=== PATIENT | male | born 1950 | race Caucasian/White ===

== ENCOUNTER 2020-01-28 11:13 | Outpatient (CLI) | payer MEDICARE, SELFPAY ==
[2020-01-28 12:01] LABS: Creatinine Urine 102.6 mg/dL; Total Protein Urine Random 183 mg/dL
[2020-01-28 12:05] LABS: Alanine Aminotransferase 42 U/L (4-50); Albumin Level 3.7 g/dL (3.5-5.1); Albumin Level 3.8 g/dL (3.5-5.1); Alkaline Phosphatase 88 U/L (38-126); Anion Gap 7 mmol/L (8-16); Aspartate Amino Transferase 35 U/L (17-59); Bilirubin,Total 0.5 mg/dL (0.2-1.3); Blood Urea Nitrogen 26 mg/dL (9-20); Blood Urea Nitrogen 27 mg/dL (9-20); Calcium 9.1 mg/dL (8.4-10.2); Carbon Dioxide 24 mmol/L (22-30); Chloride 105 mmol/L (98-107); Chloride 106 mmol/L (98-107); Cholesterol 198 mg/dL (0-200); Estimated Glomerular Filt Rate 40; Glucose 94 mg/dL (75-110); Glucose 95 mg/dL (75-110); HDL Direct 39 mg/dL; Phosphorus 3.5 mg/dL (2.5-4.5); Potassium 4.5 mmol/L (3.4-5.0); Potassium 4.6 mmol/L (3.4-5.0); Sodium 136 mmol/L (137-145); Sodium 137 mmol/L (137-145); Triglycerides 66 mg/dL (<150); Uric Acid 9.2 mg/dL (3.5-8.5)
[2020-01-28 12:16] LABS: LDL Cholesterol Direct 123 mg/dL; Parathyroid Intact 118.6 pg/mL (7.5-53.5)
[2020-01-28 12:35] LABS: Prostate Specific Antigen 1.2 ng/mL (< OR = 4.0)
[2020-01-28 12:44] LABS: Vitamin D 25 Hydroxy 55.2 ng/mL
== END 2020-01-28 11:14 | disposition home or self-care (01) ==
PROVIDERS: PCP Internal Medicine; Visit Provider Internal Medicine
DX: M10.9 Gout, unspecified (principal); N18.3 Chronic kidney disease, stage 3 (moderate); R80.8 Other proteinuria; I12.9 Hypertensive chronic kidney disease with stage 1 through stage 4 chronic kidney disease, or unspecified chronic kidney disease; Z79.899 Other long term (current) drug therapy; E78.5 Hyperlipidemia, unspecified; Z12.5 Encounter for screening for malignant neoplasm of prostate
CPT/HCPCS: 36415; 80053; 80061; 80069; 82306; 82570; 83970; 84100; 84153; 84156; 84550; G0103

== ENCOUNTER 2020-05-31 09:20 | Outpatient (CLI) | payer MEDICARE, SELFPAY ==
[2020-05-31 09:59] LABS: Alanine Aminotransferase 41 U/L (4-50); Alkaline Phosphatase 67 U/L (38-126); Anion Gap 4 mmol/L (8-16); Aspartate Amino Transferase 39 U/L (17-59); Bilirubin,Total 0.6 mg/dL (0.2-1.3); Blood Urea Nitrogen 29 mg/dL (9-20); Calcium 9.6 mg/dL (8.4-10.2); Carbon Dioxide 30 mmol/L (22-30); Chloride 108 mmol/L (98-107); Cholesterol 254 mg/dL (0-200); Estimated Glomerular Filt Rate 43; Glucose 106 mg/dL (75-110); HDL Direct 67 mg/dL; Sodium 142 mmol/L (137-145); Triglycerides 120 mg/dL (<150); Uric Acid 9.3 mg/dL (3.5-8.5)
[2020-05-31 10:10] LABS: LDL Cholesterol Direct 150 mg/dL
[2020-05-31 10:43] LABS: Vitamin D 25 Hydroxy 34.9 ng/mL
== END 2020-05-31 09:21 | disposition home or self-care (01) ==
PROVIDERS: PCP Internal Medicine; Visit Provider Nurse Practitioner
DX: M10.9 Gout, unspecified (principal); E78.5 Hyperlipidemia, unspecified; E55.9 Vitamin D deficiency, unspecified
CPT/HCPCS: 36415; 80053; 80061; 82306; 84550

== ENCOUNTER → 2020-06-18 01:10 | Outpatient (CLI) | payer MEDICARE, SELFPAY ==
[2020-06-18 20:38] LABS: SARS-CoV-2 RNA PCR Negative
== END ==
PROVIDERS: PCP Internal Medicine; Visit Provider Internal Medicine Gastroenterology
DX: Z01.812 Encounter for preprocedural laboratory examination (principal); Z20.822 Contact with and (suspected) exposure to COVID-19
CPT/HCPCS: C9803; U0003; U0005

== ENCOUNTER 2020-06-21 01:03 | Day surgery (SDC) | payer MEDICARE, SELFPAY ==
[2020-06-03 12:29] VITALS: BMI 27.3
[2020-06-21 08:30] VITALS: BP 139/65; PULSE 75; RESP 18; TEMP 36.2; O2SAT 98
[2020-06-21] MEDS: LACTATED RINGERS 1,000 ML 150 ML IV CONT (08:51)
--- NOTE | 2020-06-21 09:07 | WPDANESEPPF ---
Anes - Initial Pre Proc Eval Procedure: Operation Date: 06/21/20 09:15 Proposed Procedures p Screening Colonoscopy - Jose Guadalupe Villafuerte MD Date/Time: 06/21/20 09:07 Surgeon: Jose Guadalupe Villafuerte MD Pre Op Diagnosis: Neoplasm Screening Patient Data Age: 70 Gender: M Height: 5 ft 10 in Weight: 87.2 kg Last Vital Signs Temp 36.2 C L 06/21/20 08:30 Pulse 75 06/21/20 08:30 Resp 18 06/21/20 08:30 BP 139/65 06/21/20 08:30 Pulse Ox 98 06/21/20 08:30 Allergies Allergy/AdvReac Type Severity Reaction Status Date / Time No Known Allergies Allergy Verified 06/21/20 08:19 Home Medications Medication Instructions Recorded Confirmed Type aspirin 81 mg tablet,delayed 81 mg PO DAILY 05/20/19 06/21/20 History release diltiazem HCl 180 mg capsule,24 180 mg PO DAILY 05/20/19 06/21/20 History hr,extended release ibuprofen 200 mg tablet 200 mg PO Q6H PRN 05/20/19 06/21/20 History omega-3 fatty acids 1,000 mg 1,000 mg PO DAILY 05/20/19 06/21/20 History capsule colchicine 0.6 mg tablet 0.6 mg PO BID PRN #30 tablet 02/29/20 06/21/20 Rx B-complex with vitamin C 1 tablet PO DAILY 05/30/20 06/21/20 History cholecalciferol (vitamin D3) 50 100 mcg PO DAILY tablet 05/30/20 06/21/20 History mcg (2,000 unit) tablet allopurinol 100 mg tablet 100 mg PO DAILY #90 tablet 05/31/20 06/21/20 Rx atorvastatin 20 mg tablet 20 mg PO DAILY #90 tablet 05/31/20 06/21/20 Rx Patient hx anesthesia problems: none Family hx anesthesia problems: none PMFSH Past Medical History Medical History Screening for colon cancer Screening for prostate cancer Family History Family History Mother Family history of Alzheimer's disease Father Family history of pancreatic cancer Social History Social History Smoking packs per day: 1.5 Smoking cigarettes per day: 30.0 Years smoked: 40 Smoking pack-years: 60.00 Smoking status: Former smoker Tobacco type: cigarettes Smoking end date: 05/13/10 Alcohol intake: current Drinks per week: 60 Alcohol use details: 6-8 per day Substance use: current Substance use type: marijuana Other substance usage details: occasionally Living arrangements: with family Gender identity (if verbalized by the patient): Male Spiritual care concerns: No Anes - Eval Final PreProcedure Day of Procedure 06/21/20 09:07 Patient weight: overweight Heart: regular rate and rhythm Lungs: clear to auscultation Airway: Mallampati scale class II Neurological: alert and oriented Last oral intake: >/= 8 hours ASA classification: III Emergent: no Anesthetic plan: proceed Anesthesia type and monitoring: general GIVS and standard monitoring Informed Consent: The patient's anesthetic plan and its attendant risks and benefits were discussed with the patient/family/POA. Questions were solicited and answers provided to the satisfaction of the patient/family/POA.
--- NOTE | 2020-06-21 09:37 | PM.HPGS ---
History of Present Illness History of Present Illness Consent: Risks, benefits, and alternatives have been discussed and questions answered. Patient agrees to proceed with procedure. Chief complaint: Neoplasm Screening Narrative: Caleb Martines is a 70 year old male here for first screening colonoscopy, denies lower gi symptmos Review of Systems Constitutional: Constitutional: Denies headache(s) and Denies weakness Eyes: Eyes: Denies blurry vision ENT: Reports Normal hearing present, Denies headache(s) and Denies neck pain Cardiovascular: Cardiovascular: Denies chest pain and Denies dyspnea Respiratory: Respiratory: Denies dyspnea Gastrointestinal: Gastrointestinal: Reports no additional gastrointestinal complaints Genitourinary: Genitourinary: Denies dysuria Musculoskeletal: Musculoskeletal: Denies neck pain Integumentary/Breasts: Skin/Breast: Denies dry skin Neurologic: Reports Normal hearing present, Denies headache(s) and Denies weakness Psychiatric: Psychiatric: Denies anxiety Endocrine: Endocrine: Denies change in body appearance Hematologic/Lymphatic: Hematologic/Lymphatic: Denies easy bleeding Allergic/Immunologic: Allergic/Immunologic: Denies urticaria PMFSH Past Medical History Medical History Screening for colon cancer Screening for prostate cancer Family History Family History Mother Family history of Alzheimer's disease Father Family history of pancreatic cancer Social History Social History Smoking packs per day: 1.5 Smoking cigarettes per day: 30.0 Years smoked: 40 Smoking pack-years: 60.00 Smoking status: Former smoker Tobacco type: cigarettes Smoking end date: 05/13/10 Alcohol intake: current Drinks per week: 60 Alcohol use details: 6-8 per day Substance use: current Substance use type: marijuana Other substance usage details: occasionally Living arrangements: with family Gender identity (if verbalized by the patient): Male Spiritual care concerns: No Meds Home Medications and Allergies Home Medications Medication Instructions Recorded Confirmed Type aspirin 81 mg tablet,delayed 81 mg PO DAILY 05/20/19 06/21/20 History release diltiazem HCl 180 mg capsule,24 180 mg PO DAILY 05/20/19 06/21/20 History hr,extended release ibuprofen 200 mg tablet 200 mg PO Q6H PRN 05/20/19 06/21/20 History omega-3 fatty acids 1,000 mg 1,000 mg PO DAILY 05/20/19 06/21/20 History capsule colchicine 0.6 mg tablet 0.6 mg PO BID PRN #30 tablet 02/29/20 06/21/20 Rx B-complex with vitamin C 1 tablet PO DAILY 05/30/20 06/21/20 History cholecalciferol (vitamin D3) 50 100 mcg PO DAILY tablet 05/30/20 06/21/20 History mcg (2,000 unit) tablet allopurinol 100 mg tablet 100 mg PO DAILY #90 tablet 05/31/20 06/21/20 Rx atorvastatin 20 mg tablet 20 mg PO DAILY #90 tablet 05/31/20 06/21/20 Rx Allergies Allergy/AdvReac Type Severity Reaction Status Date / Time No Known Allergies Allergy Verified 06/21/20 08:19 Vital Signs Vital Signs - 24 hr 06/21/20 08:30 Temperature 97.2 F L Pulse Rate 75 Respiratory Rate 18 Blood Pressure 139/65 Pulse Oximetry 98 Exam Const: General: comfortable and no acute distress HENMT: General nose exam: Normal nares present Eyes: General: appearance normal, both eyes and all related structures Neck: Neck: no JVD Resp: Auscultation: clear to auscultation bilaterally Cardio: Rate: regular rate Rhythm: regular rhythm GI: Inspection: non-distended GI Palp: Yes Soft to palpation Skin: General skin exam: normal color Neuro: General: gait normal Speech: normal speech Extrem: General: normal to inspection Psych: Mental Status: mental status grossly normal Assessment and Plan Assessment and plan (1) Screening for colon cancer:
[2020-06-21 10:08] VITALS: BP 97/64; PULSE 78; RESP 16; O2SAT 95
[2020-06-21 10:18] VITALS: BP 114/71; PULSE 63; RESP 18; O2SAT 97
[2020-06-21 10:28] VITALS: BP 126/79; PULSE 72; RESP 20; O2SAT 98
== END 2020-06-21 11:15 | disposition home or self-care (01) ==
PROVIDERS: PCP Internal Medicine; Visit Provider Internal Medicine Gastroenterology
PROC: 0DJD8ZZ Inspection of Lower Intestinal Tract, Via Natural or Artificial Opening Endoscopic (ICD-10-PCS; CPT 45378; principal; 2020-06-21 09:15)
DX: Z12.11 Encounter for screening for malignant neoplasm of colon (principal); D12.2 Benign neoplasm of ascending colon; D12.3 Benign neoplasm of transverse colon; D12.5 Benign neoplasm of sigmoid colon; K57.30 Diverticulosis of large intestine without perforation or abscess without bleeding; K64.8 Other hemorrhoids; Z87.891 Personal history of nicotine dependence
CPT/HCPCS: 45385; 88305; C9803; J2704; J7120; U0003; U0005

== ENCOUNTER 2020-07-29 03:45 | Inpatient (IN) | payer MEDICARE, SELFPAY ==
[2020-07-29] VITALS (30 sets, daily range): BP systolic 101–150; BP diastolic 62–99; PULSE 92–123; RESP 16–34; TEMP 35.7–36.9; O2SAT 83–100; BMI 26.8
--- NOTE | 2020-07-29 | ECHO_ITS ---
Patient Info Name: Caleb Martines Age: 70 years : 1950 Gender: Male Ht: 70 in Wt: 186 lbs BSA: 2.05 m2 HR: 32 bpm BP: 101 / 63 mmHg Heart Rhythm: Indeterminant Technical Quality: Good Exam Date: 07/29/2020 3:10 PM Exam Location: [facility] Patient Status: Inpatient Admit Date: 07/29/2020 Staff Ordering Physician: Moreno Ricketts MD Water Commissioner: Collin Somers, ANIKA, RT Attending Provider: Nicki Gamble MD Referring Physician: Jamracus MUNGUIA; Exam Type: CA echo doppler color flow Study Info Indications I50.9 - Heart failure, unspecified I44.7 - Left bundle-branch block, unspecified R06.02 - Shortness of breath Complete two-dimensional, color flow and Doppler transthoracic echocardiogram is performed. Strain analysis performed. Summary 1. Complete two-dimensional, color flow and Doppler transthoracic echocardiogram is performed. 2. Moderate left ventricular enlargement with mild ecconcentric hypertrophy. Calculated ejection fraction 20%, visual estimate is 20-25%. There is severe global hypokinesis with akinesis of the basal inferior septal segment. Grade 2 diastolic dysfunction is present. 3. Right ventricular chamber dimension is mildly enlarged. 4. Left atrial chamber dimension is mildly enlarged. 5. There is mild mitral valve regurgitation. Left Ventricle Left ventricular chamber dimension is moderately enlarged. Left ventricular systolic function is severely reduced, estimated at 20-25%. There is mildly increased left ventricular wall thickness. Left ventricular septal wall motion is normal. The left ventricular diastolic function is grade II diastolic dysfunction. Right Ventricle Right ventricular chamber dimension is mildly enlarged. Right ventricular systolic function is normal. Left Atria Left atrial chamber dimension is mildly enlarged. Right Atria Right atrial chamber dimension is normal. Aortic Valve The aortic valve is trileaflet. There is no aortic valve sclerosis. There is no aortic valve stenosis. There is no aortic valve regurgitation. Pulmonic Valve The pulmonic valve is normal. There is no pulmonic valve stenosis. There is no pulmonic regurgitation. Mitral Valve The mitral valve has thickened leaflets. There is no mitral valve stenosis. There is mild mitral valve regurgitation. Tricuspid Valve The tricuspid valve leaflets are normal. There is no significant tricuspid valve stenosis. There is trace tricuspid valve regurgitation. No pulmonary hypertension, estimated pulmonary arterial systolic pressure is Empty. Pericardium/Pleural The pericardium appears normal. There is no pericardial effusion. Inferior Vena Cava Dilated inferior vena cava with >50% collapse upon inspiration consistent with Empty right atrial pressure, 10 mmHg. Aorta The aortic root size at the sinus of Valsalva is normal. The prox ascending aorta size is normal. Left Ventricular Outflow Tract Name Value Normal LVOT 2D LVOT Diameter 2.1 cm LVOT Doppler LVOT Peak Gradient 1 mmHg LVOT Mean Gradient
--- NOTE | ~2020-07-29 | US_ITS ---
EXAMINATION: US venous doppler [facility] DATE: 07/30/2020 13:20 INDICATION: Shortness of breath. Elevated d-dimer. TECHNIQUE: Grayscale ultrasound images without and with compression and Doppler ultrasound images of the bilateral lower extremity veins were obtained. COMPARISON: None. FINDINGS: The visualized portions of right common femoral vein, profunda (deep) femoral vein, femoral vein, pop liteal vein, posterior tibial veins, peroneal veins, gastrocnemius vein and greater saphenous vein ou tflow are patent. 4.4 x 2.8 x 1.4 cm anechoic Rodriguez's cyst at the right popliteal fossa. The visualized portions of left common femoral vein, profunda femoral vein, femoral vein, popliteal v ein, posterior tibial veins, peroneal veins, gastrocnemius vein and greater saphenous vein outflow ar e patent. There is increased venous pulsatility in the veins at both lower legs extending distally to the popli teal veins. IMPRESSION: 1. No deep venous thrombosis in either lower limb. Line 2. Increased venous pulsatility extending to the popliteal veins in both lower limbs. This can be see n in the setting of tricuspid regurgitation, right heart failure or other cause of elevated right hea rt pressure. 3. Small right Rodriguez's cyst. Reviewed, dictated and finalized at location A. IMPRESSION: 1. No deep venous thrombosis in either lower limb. Line 2. Increased venous pulsatility extending to the popliteal veins in both lower limbs. This can be seen in the setting of tricuspid regurgitation, right heart failure or other cause of elevated right heart pressure. 3. Small right Rodriguez's cyst.
--- NOTE | ~2020-07-29 | CT_ITS ---
EXAMINATION: CTA chest PE protocol DATE: 07/29/2020 06:54 INDICATION: Shortness of breath. TECHNIQUE: Computed tomography angiography (CTA) of the chest was performed with 100 mL Omnipaque-350 intravenous contrast timed to evaluate the pulmonary arteries. Coronal maximum intensity projection 3D-reconstructions were created by the technologist. Automated exposure control and iterative reconst ruction technique were employed. The dose-length product was 966.52 mGy-cm. COMPARISON: Chest CT 06/02/2019 FINDINGS: There is severe emphysema. There are small pleural effusions. There is dependent atelectasi s bilaterally. Calcified right hilar and mediastinal lymph nodes are consistent with old granulomatou s disease. The heart size is normal. No pericardial effusion. There is no pulmonary embolus. Calcific ations in the spleen are consistent with old granulomatous disease. There are cysts in the kidneys me asuring up to 5.0 cm on the left. The pancreas demonstrates calcifications and a 2.1 cm cystic lesion , consistent with chronic pancreatitis. There is moderate thoracic spondylosis. There is mild chronic height loss of multiple vertebral bodies. IMPRESSION: 1. No pulmonary embolus. 2. Severe emphysema. 3. Small pleural effusions. Reviewed, dictated and finalized at location A.
--- NOTE | ~2020-07-29 | US_ITS ---
US renal BI 08/01/2020 11:01 Procedure: Realtime transabdominal ultrasound of the kidneys and bladder. Indication: Acute renal insufficiency Comparison: No prior studies for comparison. Findings: There are multiple left renal cysts, largest measuring 4.6 cm. Right renal echotexture with in normal limits without focal mass, hydronephrosis or stone. The right kidney measures 10.5 cm and l eft kidney measures 12 cm. Bladder within normal limits. Impression: 1: Left renal cysts measuring up to 4.6 cm. Reviewed, dictated and finalized at location A. Impression: 1: Left renal cysts measuring up to 4.6 cm.
--- NOTE | ~2020-07-29 | XR_ITS ---
EXAMINATION: XR chest 1V portable DATE: 07/29/2020 04:48 INDICATION: Shortness of breath. TECHNIQUE: A single frontal view of the chest was obtained. COMPARISON: Chest CT 07/29/2020 FINDINGS: There are lucencies in the lungs, consistent with emphysema. There are airspace opacities i n right mid and lower lung zones and left lower lung zone. There is a small right pleural effusion. N o pneumothorax. The heart size is normal. IMPRESSION: 1. Severe emphysema. 2. Airspace opacities in right mid and lower lung zones and left lower lung zone, likely atelectasis. 3. Small right pleural effusion. Reviewed, dictated and finalized at location A. IMPRESSION: 1. Severe emphysema. 2. Airspace opacities in right mid and lower lung zones and left lower lung zon e, likely atelectasis. 3. Small right pleural effusion.
--- NOTE | 2020-07-29 03:50 | ECG_ITS ---
Measurements Intervals [place] Rate: 114 P: 65 NC: 147 QRS: 27 QRSD: 174 T: 125 QT: 382 QTc: 527 Interpretive Statements SINUS TACHYCARDIA VENTRICULAR COUPLETS AND VENTRICULAR BIGEMINY RIGHT ATRIAL ENLARGEMENT LEFT ATRIAL ENLARGEMENT LEFT BUNDLE BRANCH BLOCK BASELINE ARTIFACT- I, III, AVR, AVL, AVF, V1-V5 ABNORMAL ECG Electronically Signed On 07-29-2020 7:23:23 CDT by Jose Toure D.O.
--- NOTE | 2020-07-29 03:50 | PC.NURSE ---
Pt presents to ED with complaints of sob that onset approx 5- hours ago. Per who presented to bedside, she and pt both got their covid vaccine on 07/27/2020. Pt with accessory and abdominal muscle use. RT presented to ED for Bi-pap placement. Pt tolerating well with O2 saturation of 100%. Breathing even and labored. Pt remains alert and oriented x4. No complaints or concerns voiced at this time. Call button and personal items within reach.
[2020-07-29] MEDS: ALBUTEROL SULFATE NEB 2.5 MG/0.5 ML INH 5 MG INHALATION ×4 (03:55→19:38)
[2020-07-29] MEDS: IPRATROPIUM BR 0.02% INH SOLN 0.5 MG/2.5 ML VIAL INHALATION ×4 (03:56→19:38)
--- NOTE | 2020-07-29 04:11 | PC.NURSE ---
Pt resting on cart and remains tachypenic. RT at bedside for breathing tx. Abdominal and accessory muscle use continues.
[2020-07-29] MEDS: methylPREDNISolone SOD SUCC 125 MG VIAL IV PUSH (04:18)
--- NOTE | 2020-07-29 04:33 | PC.NURSE ---
RT at bedside to obtain ABG.
[2020-07-29 04:36] LABS: Alveolar/Arterial O2 Gradient 185.4 mmHg; Base Excess ABG -5.7 mEq/l (+/-2.0); Fractional Inspired Oxygen 44 %; HCO3 ABG 19.6 mEq/l (22.0-26.0); Oxygen Content ABG 20.4 %vol (16.0-22.0); Oxygen Saturation ABG 95.8 % (95.0-100.0); Oxyhemoglobin 94.7 % THb (90.0-100.0); PO2 FiO2 Ratio Arterial Blood 1.93 %; Total Hemoglobin 15.3 g/dL (12.0-18.0)
[2020-07-29 04:37] LABS: Device OTHER DEVICE; Modified Allen's Test Pass; Site Drawn LEFT RADIAL
[2020-07-29] MEDS: LORazepam INJ (*CRX) 2 MG/ML VIAL 0.5 MG IV PUSH (04:38)
--- NOTE | 2020-07-29 04:53 | PC.NURSE ---
CXR completed at bedside. Pt now resting more comfortably on cart. Breathing is even and unlabored. remains at bedside and both she and pt are aware of poc and all questions and concerns have been addressed. Vitals are stable and pt in no obvious. Call button and personal items are within reach. Pt and advised to press call button for assistance.
--- NOTE | 2020-07-29 05:40 | PC.NURSE ---
Pt provided ice water per ok from EDMD. remains at bedside. Vitals stable and pt in no obvious distress. Pt remains alert and oriented x4. Breathing even and unlabored.
[2020-07-29 05:48] LABS: Basophils Percent Auto 0.5 % (0.2-1.2); Eosinophils Percent Auto 0.2 % (0-4.4); Hematocrit 44.8 % (42.0-52.0); Hemoglobin 14.5 g/dL (14.0-18.0); Immature Granulocyte Absolute 0.02 K/mm3 (0.00-0.031); Immature Granulocyte Percent A 0.3 % (0-0.5); Lymphocytes Absolute Auto 1.02 K/mm3 (0.9-3.2); Lymphocytes Percent Auto 16.3 % (18.3-44.2); Mean Corpuscular HGB Conc 32.4 g/dl (32-36); Mean Corpuscular Hemoglobin 32.4 pg (26-34); Mean Corpuscular Volume 100.2 fl (80-100); Mean Platelet Volume 10.5 fl (7.4-10.4); Monocytes Absolute Auto 0.4 K/mm3 (0.1-0.6); Monocytes Percent Auto 6.2 % (2.6-8.5); Neutrophils Absolute Auto 4.8 K/mm3 (1.3-6.7); Neutrophils Percent Auto 76.5 % (45.5-73.1); Platelet Count Result 141 k/mm3 (150-375); Red Blood Count 4.47 M/mm3 (4.6-6.20); Red Cell Distribution Width 14.6 % (11.5-14.5); White Blood Count 6.3 K/mm3 (4.5-10.0)
[2020-07-29 06:00] LABS: Alanine Aminotransferase 36 U/L (4-50); Albumin Level 3.6 g/dL (3.5-5.1); Alkaline Phosphatase 94 U/L (38-126); Anion Gap 8 mmol/L (8-16); Aspartate Amino Transferase 44 U/L (17-59); Bilirubin,Total 0.5 mg/dL (0.2-1.3); Blood Urea Nitrogen 25 mg/dL (9-20); Calcium 8.9 mg/dL (8.4-10.2); Carbon Dioxide 24 mmol/L (22-30); Chloride 108 mmol/L (98-107); Estimated Glomerular Filt Rate 40; Glucose 165 mg/dL (75-110); Magnesium 1.7 mg/dL (1.6-2.3); Potassium 4.2 mmol/L (3.4-5.0); Sodium 140 mmol/L (137-145)
[2020-07-29 06:03] LABS: INR 0.9; Prothrombin Time 12.2 Seconds (11.1-14.7)
[2020-07-29 06:04] LABS: Partial Thromboplastin Time 27.7 SECONDS (22.3-36.8)
[2020-07-29 06:07] LABS: D Dimer 2.44 ug/mL (<0.48)
--- NOTE | 2020-07-29 06:30 | PC.NURSE ---
Pt to ct via cart.
[2020-07-29 06:37] LABS: NT Pro B Type Natriuretic Pept 17400 PG/ML (5-100); Troponin I 0.275 ng/mL (0.000-0.034)
--- NOTE | 2020-07-29 06:40 | PC.NURSE ---
Pt returned from CT and is now on cart sleeping with call button and personal items within reach. at bedside.
--- NOTE | 2020-07-29 06:51 | ED.GENADULT ---
HPI - General Adult General Chief complaint: Shortness of Breath/Dyspnea <Onofre Daniel MD - Last Filed: 07/29/20 07:10> Stated complaint: Shortness of breath <Onofre Daniel MD - Last Filed: 07/29/20 07:10> Time Seen by Provider: 07/29/20 03:50 <Onofre Daniel MD - Last Filed: 07/29/20 07:10> History of Present Illness HPI narrative: Patient is a 70-year-old gentleman who presents the emergency department chief complaint of shortness of breath. Patient states this evening he had sudden onset of difficulty breathing and felt as though he cannot get a deep breath. Patient reports that today he just got his COVID-19 vaccine. Patient has history of hypertension renal insufficiency. Patient was initially brought in by EMS extremely tachypneic and very tight on the respiratory status and was on CPAP prior to arrival. Upon arrival to the emergency department he was placed initially on BiPAP received nebulizer treatments IV steroids and the patient had significant improvement to the point he was able to be removed from the BiPAP. <Onofre Daniel MD - Last Filed: 07/29/20 07:10> Related Data Home medications: Home Medications Medication Instructions Recorded Confirmed aspirin 81 mg tablet,delayed 81 mg PO DAILY 05/20/19 06/21/20 release diltiazem HCl 180 mg capsule,24 180 mg PO DAILY 05/20/19 06/21/20 hr,extended release ibuprofen 200 mg tablet 200 mg PO Q6H PRN 05/20/19 06/21/20 omega-3 fatty acids 1,000 mg 1,000 mg PO DAILY 05/20/19 06/21/20 capsule B-complex with vitamin C 1 tablet PO DAILY 05/30/20 06/21/20 cholecalciferol (vitamin D3) 50 100 mcg PO DAILY tablet 05/30/20 06/21/20 mcg (2,000 unit) tablet <Onofre Daniel MD - Last Filed: 07/29/20 07:10> Allergies/adverse reactions: Allergies Allergy/AdvReac Type Severity Reaction Status Date / Time No Known Allergies Allergy Verified 06/21/20 08:19 <Onofre Daniel MD - Last Filed: 07/29/20 07:10> Review of Systems Review of Systems: Narrative: A 10 system review of systems was completed on the patient and is negative except for what is stated in the HPI. Nursing and ancillary documentation was reviewed. <Onofre Daniel MD - Last Filed: 07/29/20 07:10> PMFSH Past Medical History Medical History: Medical History Screening for colon cancer Screening for prostate cancer <Onofre Daniel MD - Last Filed: 07/29/20 07:10> Family History Family History: Family History Mother Family history of Alzheimer's disease Father Family history of pancreatic cancer <Onofre Daniel MD - Last Filed: 07/29/20 07:10> Social History Social History: Social History Smoking packs per day: 1.5 Smoking cigarettes per day: 30.0 Years smoked: 40 Smoking pack-years: 60.00 Smoking status: Former smoker Tobacco type: cigarettes Smoking end date: 05/13/10 Alcohol intake: current Drinks per week: 60 Substance use: current Substance use type: marijuana Other substance usage details: occasionally Gender identity (if verbalized by the patient): Male Spiritual care concerns: No <Onofre Daniel MD - Last Filed: 07/29/20 07:10> Exam Narrative: Exam Narrative: GENERAL: Well-appearing, well-nourished, and in no acute distress. HEAD: Normocephalic, atraumatic. EYES: PERRLA and EOMI. ENT: Nares clear, no rhinorrhea or epistaxis. Mucous membranes moist. NECK: Supple. CHEST: Clear to auscultation. No respiratory distress. HEART: Regular rate and rhythm. No murmur heard. Normal peripheral pulses. ABDOMEN: Soft, nontender, nondistended, normal active bowel sounds. EXTREMITIES: Normal range of motion. No edema. SKIN: W
--- NOTE | 2020-07-29 09:06 | PC.NURSE ---
Called to give report. Was told that floor never received SBAR. tubed up this time.
--- NOTE | 2020-07-29 10:00 | ADMGEN ---
This patient, Caleb Martines, was admitted to IMU Room 232-01. Patient/family oriented to hospital policies and general routines including ID bracelet, bed and alarms, visiting hours, pain management, procedures, bathroom and other care routines, personal items, smoking policy, room service/diet, and visiting hours. Information on how to activate the Rapid Response Team has been discussed. Patient/Family are encouraged to report perceived risks to care and to ask questions if they do not understand what they are told or what they should do.
[2020-07-29] MEDS: methylPREDNISolone SOD SUCC 125 MG VIAL 60 MG IV PUSH ×2 (11:38→17:43)
[2020-07-29] MEDS: SODIUM CHLORIDE 0.9% IV 1,000 ML 125 ML IV CONT ×2 (11:39→21:33)
[2020-07-29 14:53] LABS: Add Urine Microscopic? YES; Appearance Urine Clear (Clear); Bilirubin Urine Negative (Negative); Blood Urine Negative (Negative); Color Urine Yellow (Yellow); Glucose Urine UA Negative (Negative); Ketones Urine Trace mg/dL (Negative); Leukocyte Esterase Ur Negative LEU/UL (Negative); Mucus Urine Rare /lpf; Nitrate Urine Negative (Negative); Protein Urine 3+ mg/dL (Negative); RBC Urine 0-2 /hpf (0-2); Specific Grav Ur 1.038 (1.001-1.035); Squamous Epithelial Cell Urine Rare /hpf (Few); Urobilinogen Urine Negative mg/dL (<2.0); WBC Urine 0-3 /hpf
--- NOTE | 2020-07-29 15:07 | PM.CNCAR ---
Assessment and Plan Additional Plan 70-year-old man with: Several day history of increasing shortness of breath risk factors for coronary disease including hypertension dyslipidemia and longstanding history of smoking which he quit about 10 years ago. Patient has a left bundle branch block and some ectopic activity on exam. He is feeling better after receiving diuresis in the emergency room. I would recommend continuing the furosemide at this point obtaining an echocardiogram to assess the structural basis of this given his left bundle branch block which at least was not present 10 years ago. We will have further recommendations with after those results are available. Moreno Ricketts MD [facility] History of Present Illness History of Present Illness Consult date/time: 07/29/20 15:07 Consult reason: shortness of breath Reason For Visit: COPD exacerbation, elevated tropnin Narrative: This is a 70-year-old man I am seeing at the request of the hospitalist who came to the emergency room earlier today with respiratory distress, she significant shortness of breath his part of his evaluation demonstrated a left bundle branch block and his troponin levels have risen modestly prompting this consultation. The patient states that he can't remember being told of any cardiac problems in the past by any of his previous physicians. He has a history of hypertension and dyslipidemia and also history of some protein urea which is all of which has been managed medically. He states that over several days he has noticed some shortness of breath he was wondering if whether this was a consequence of the Coronavirus injection which she received earlier this week. When he shortness of breath last night was severe when he had to sit up and was unable to lie down he decided to come in the emergency room today his called an ambulance and he was brought here for evaluation. His ECG shows a sinus mechanism with frequent ventricular ectopic activity and a left bundle branch block. Troponin levels were 0.2 and then darnell to over 1.0. He denies any sense of chest pain pressure or heaviness states he is normally active man his usual life he does not exercise regularly but he does not have any exertional symptomatology. He denies any symptoms of orthopnea PND or edema are sense of palpitations or syncope. I was unable to find a recent old ECG in the chart for comparison. The last ECG available looks like it was about 10 years ago at which time he did not have a left bundle branch block. He is very comfortable when I came in the room to see him. Of course he is being ruled out for Coronavirus. His medical regimen looks like it consists of aspirin, atorvastatin, colchicine, diltiazem and ibuprofen. States he has been in remarkably good health he has not really been hospitalized ever in his life overnight in the hospital. He has been for the in the hospital for outpatient procedures such as a colonoscopy. Review of Systems Constitutional: Constitutional: Reports no additional constitutional complaints Eyes: Eyes: Reports no additional eye complaints ENT: Reports system reviewed and no additional complaints, except as documented Cardiovascular: Cardiovascular: Reports as per HPI Respiratory: Respiratory: Reports as per HPI Gastrointestinal: Gastrointestinal: Reports no additional gastrointestinal complaints Musculoskeletal: Musculoskeletal: Reports no additional musculoskeletal complaints Integumentary/Breasts: Skin/Breast: Reports system reviewed and no additional complaints, except as docu Neurologic: Reports system reviewed and no additional complaints, except as documented Endocrine: Endocrine: Reports no additional endocrine complaints Hematologic/Lymphatic: Hematologic/Lymphatic: Reports no additional hematologic/lymphatic complaints Allergic/Immunologic: Allergic/Immunologic: Reports no additional allergic/immunologic complaints PMFSH Past Medical History
--- NOTE | 2020-07-29 17:19 | PM.IMHP ---
H&P: HPI History of Present Illness Date/Time: 07/29/20 17:19 patient is 70-year-old male presented emergency department with a complaint of shortness of breath persistent for last few days is poor historian some of the history is recorded from the chart and reviewing the ER note, and disability specialist, patient has a history of hypertension acute kidney injury he was brought to the emergency department by EMS he was quite tachypneic and shortness of breath and he was on CPAP, emergency depart patient was placed on BiPAP was given updraft, and steroid which did improve his breathing, chest x-ray showed severe emphysema as patient has a long history of smoking however he stopped smoking 10 years ago, CTA of the chest did not show any PE, patient has a elevated cardiac enzyme an EKG showing left bundle branch patient is seen by Cardiology recommending to diurese the patient, will do the cardiac echo, patient does not need any emergent intervention will continue to monitor, suspect patient may be positive for COVID tested and being isolated will follow on test. Chief Complaint: Short of breath Review of Systems Review of Systems: All systems reviewed & are unremarkable except as noted in HPI and below PMFSH Past Medical History Medical History Screening for colon cancer Screening for prostate cancer Family History Family History Mother Family history of Alzheimer's disease Father Family history of pancreatic cancer Social History Social History Smoking packs per day: 3 Smoking cigarettes per day: 60.0 Years smoked: 43 Smoking pack-years: 129.00 Smoking status: Former smoker Tobacco type: cigarettes Smoking end date: 05/13/10 Alcohol intake: current Drinks per week: 42 Substance use: current Substance use type: marijuana Other substance usage details: occasionally Gender identity (if verbalized by the patient): Male Spiritual care concerns: No Meds Home Medications and Allergies Home Medications Medication Instructions Recorded Confirmed Type aspirin 81 mg tablet,delayed 81 mg PO DAILY 05/20/19 07/29/20 History release diltiazem HCl 180 mg capsule,24 180 mg PO DAILY 05/20/19 07/29/20 History hr,extended release ibuprofen 200 mg tablet 200 mg PO DAILY 05/20/19 07/29/20 History omega-3 fatty acids 1,000 mg 1,000 mg PO DAILY 05/20/19 07/29/20 History capsule B-complex with vitamin C 1 tablet PO DAILY 05/30/20 07/29/20 History cholecalciferol (vitamin D3) 50 100 mcg PO DAILY tablet 05/30/20 07/29/20 History mcg (2,000 unit) tablet allopurinol 100 mg tablet 100 mg PO DAILY #90 tablet 05/31/20 07/29/20 Rx atorvastatin 20 mg tablet 20 mg PO DAILY #90 tablet 05/31/20 07/29/20 Rx colchicine 0.6 mg tablet 0.6 mg PO BID PRN #30 tablet 07/26/20 07/29/20 Rx Allergies Allergy/AdvReac Type Severity Reaction Status Date / Time No Known Allergies Allergy Verified 06/21/20 08:19 Vital Signs Vital Signs - 24 hr 07/29/20 03:42 07/29/20 03:48 07/29/20 03:51 Temperature 97.7 F 97.7 F Pulse Rate 123 H 116 H 118 H Respiratory Rate 28 H 34 H 33 H Blood Pressure 150/99 H Pulse Oximetry 83 L 100 07/29/20 03:54 07/29/20 03:56 07/29/20 04:20 Temperature 98.4 F Pulse Rate 118 H 93 Respiratory Rate 31 H 20 Blood Pressure 121/74 Pulse Oximetry 100 100 95 07/29/20 04:29 07/29/20 05:08 07/29/20 05:11 Temperature Pulse Rate 110 H 112 H 105 H Respiratory Rate 20 25 H 22 H Blood Pressure 132/62 Pulse Oximetry 96 07/29/20 05:20 07/29/20 05:34 07/29/20 06:20 Temperature Pulse Rate 103 H 95 Respiratory Rate 25 H 20 Blood Pressure 118/81 110/68 Pulse Oximetry 96 100 95 07/29/20 06:36 07/29/20 07:00 07/29/20 07:53 Temperature Pulse Rate 93 92 Respiratory Rate 19 19 B
[2020-07-29 19:28] LABS: SARS-CoV-2 RNA PCR Negative
[2020-07-30] VITALS (26 sets, daily range): BP systolic 98–137; BP diastolic 57–85; PULSE 85–118; RESP 14–20; TEMP 36–36.6; O2SAT 91–96
[2020-07-30] MEDS: methylPREDNISolone SOD SUCC 125 MG VIAL 60 MG IV PUSH ×5 (00:10→23:27)
[2020-07-30] MEDS: MELATONIN 5 MG TABLET PO ×2 (00:10→22:24)
[2020-07-30] MEDS: IPRATROPIUM BR 0.02% INH SOLN 0.5 MG/2.5 ML VIAL INHALATION ×4 (02:03→19:58)
[2020-07-30] MEDS: ALBUTEROL SULFATE NEB 2.5 MG/0.5 ML INH 5 MG INHALATION ×2 (02:03→07:50)
[2020-07-30 05:09] LABS: Hematocrit 38.6 % (42.0-52.0); Hemoglobin 12.9 g/dL (14.0-18.0); Mean Corpuscular HGB Conc 33.4 g/dl (32-36); Mean Corpuscular Hemoglobin 32.6 pg (26-34); Mean Corpuscular Volume 97.5 fl (80-100); Mean Platelet Volume 10.5 fl (7.4-10.4); Platelet Count Result 159 k/mm3 (150-375); Red Blood Count 3.96 M/mm3 (4.6-6.20); Red Cell Distribution Width 14.3 % (11.5-14.5); White Blood Count 5.7 K/mm3 (4.5-10.0)
[2020-07-30 05:23] LABS: Anion Gap 5 mmol/L (8-16); Blood Urea Nitrogen 34 mg/dL (9-20); Calcium 8.6 mg/dL (8.4-10.2); Carbon Dioxide 23 mmol/L (22-30); Chloride 108 mmol/L (98-107); Estimated CRCL calculation 28 ml/min; Estimated Glomerular Filt Rate 28; Glucose 206 mg/dL (75-110); Magnesium 1.8 mg/dL (1.6-2.3); Potassium 4.5 mmol/L (3.4-5.0); Sodium 136 mmol/L (137-145)
--- NOTE | 2020-07-30 09:29 | PM.IMPN ---
Progress Note: A&P Assessment and Plan (1) Acute respiratory failure with hypoxemia: Code(s): J96.01 - Acute respiratory failure with hypoxia Status: Acute Assessment and Plan: Paulette was tachycardic, tachypneic and hypoxic on admission. [place] related to the COPD exacerbation. Paulette has hx of tobacco use but no longer smokes. COVID negative. ABG normal but was on 6L. Better today and down to 2L. Contineu to wean O2 as tolerated (2) Elevated troponin: Code(s): R77.8 - Other specified abnormalities of plasma proteins Status: Acute Assessment and Plan: Troponin climbed to 1.27 yesterday. EKG showing LBBB with ventricular bigeminy. Echo pending. Unclear if the BBB is new or old. Could be stress response form the hypoxia and respiratory failure on admission. CKD also could be contributing. Follow-up on echo results. Repeat troponin. (3) SOHA (acute kidney injury): Code(s): N17.9 - Acute kidney failure, unspecified Status: Acute Assessment and Plan: Acute on chronic kidney disease. Baseline Cr 1.4-1.7. Cr 1.7 on admission but increased to 2.3 today. Patient did not receive lasix in ED. He did get a CTA which could be causing his SOHA. Will monitor for now but may need to start IV fluids. (4) Asthma exacerbation in COPD: Code(s): J44.1 - Chronic obstructive pulmonary disease with (acute) exacerbation; J45.901 - Unspecified asthma with (acute) exacerbation Status: Acute Assessment and Plan: Patient being treated with Solu-Medrol and updrafts. Patient has had clinical improvement. Wean oxygen as tolerated. Transition to prednisone. He is not on inhalers at home. He feels his symptoms began after his COVID vaccine. Will add a LAMA. Home also with rescue inhaler (5) Benign essential hypertension: Code(s): I10 - Essential (primary) hypertension Status: Acute Assessment and Plan: Patient's blood pressure was reviewed on 07/30 Blood pressure remains well controlled. Will continue current medications. (6) Stage 3 chronic kidney disease: Code(s): N18.3 - Chronic kidney disease, stage 3 (moderate) Status: Acute Assessment and Plan: Patient with CKD with baseline 1.4-1.7. As above. (7) Gout without tophus: Code(s): M10.9 - Gout, unspecified Status: Acute Assessment and Plan: Stable. Uric acid 9.3 in May. Continue Allopurinol for now. Stop Colchicine. (8) Hyperlipidemia, unspecified: Code(s): E78.5 - Hyperlipidemia, unspecified Status: Acute Assessment and Plan: LFTs okay. TC 254, LDL 150, HDL 67, TG 120 in May. Continue Lipitor. (9) DVT prophylaxis: Code(s): Z29.9 - Encounter for prophylactic measures, unspecified Status: Acute Assessment and Plan: Lovenox Subjective Date/time seen: 07/30/20 09:29 Interval history: 70yo male with COPD here for SOB and found to have elevated Troponins. Shortness of breath is better. Denies chest pain. No nausea or vomiting. Not eating much due to poor appetite. He denies any anosmia or dysgeusia. He is up walking to the bathroom. Exam Narrative: Exam Narrative: AF 97.7 122/82 118 18 96% 2L Gen - NARD lying semi-recumbent in bed Chest - few basilar rhonchi o/w distant BS; no wheezing CV - irregularly irregular; Tele showing frequent PCVs Abd - Soft, NT/ND, Positive BS Ext - No pedal edema Psych - Nml mood and affect Skin - Warm and dry Objective Data Vital Signs Vital Signs: Vital Signs - 24 hr 07/29/20 09:45 07/29/20 10:00 07/29/20 12:00 Temperature 97.5 F L 97.5 F L Pulse Rate 93 103 H 95 Respiratory Rate 22 H 26 H Blood Pressure 131/81 101/63 Pulse Oximetry 92 94 07/29/20 13:36 07/29/20 13:39 07/29/20 13:42 Temperature Pulse Rate 99 98 Respiratory Rate 18 18 Blood Pressure Pulse Oximetry 96 07/29/20 14:00 0
[2020-07-30] MEDS: ENOXAPARIN 40 MG/0.4 ML SYRINGE SUB-Q (09:31)
[2020-07-30] MEDS: ASPIRIN 81 MG ENTERIC TABLET PO (09:32)
[2020-07-30] MEDS: CHOLECALCIFEROL 1,000 UNITS TABLET 2000 UNITS PO (09:33)
[2020-07-30] MEDS: ATORVASTATIN 20 MG TABLET PO (09:33)
[2020-07-30] MEDS: OMEGA 3 POLYUNSAT FATTY ACIDS 1 GM CAP PO (09:34)
[2020-07-30] MEDS: VITAMIN B COMPLEX/VIT C CAPSULE 1 EACH PO (09:34)
--- NOTE | 2020-07-30 09:35 | PC.NURSE ---
Patient took diltiazem and allopurinol himself. His came to room to visit and gave him these 2 medications without informing any staff member. Physician notified. Will continue to monitor.
[2020-07-30 11:54] LABS: Folic Acid > 20.0 ng/mL (2.76->20)
--- NOTE | 2020-07-30 12:02 | PM.PNCARD ---
Progress Note: A&P Assessment and Plan (1) Type 2 MS (myocardial infarction): Code(s): I21.A1 - Myocardial infarction type 2 Status: Acute Assessment and Plan: Troponins up to 7.4 in the face 7 episode of hypoxia, tachycardia, tachypnea and respiratory distress with no chest pain. Probably a type 2 MS. Echocardiogram pending Continue aspirin and atorvastatin. Eventual ischemia evaluation. Further recommendations to follow depending on echo results. (2) Acute diastolic CHF (congestive heart failure): Code(s): I50.31 - Acute diastolic (congestive) heart failure Status: Acute Assessment and Plan: May have some mild diastolic CHF with small pleural effusions and an elevated BNP. Received 1 dose of IV Lasix in the ER. (3) Asthma exacerbation in COPD: Code(s): J44.1 - Chronic obstructive pulmonary disease with (acute) exacerbation; J45.901 - Unspecified asthma with (acute) exacerbation Status: Acute Assessment and Plan: Admitted with respiratory failure. Severe COPD by CT scan and chest x-ray. Improving with therapy. (4) LBBB (left bundle branch block): Code(s): I44.7 - Left bundle-branch block, unspecified Status: Acute Assessment and Plan: LBBB of uncertain duration. Often associated with cardiomyopathies and heart disease. (5) PVCs (premature ventricular contractions): Code(s): I49.3 - Ventricular premature depolarization Status: Acute Assessment and Plan: Frequent asymptomatic PVCs noted. Subjective Date/time seen: 07/30/20 12:02 Interval history: Follow-up for shortness of breath, COPD exacerbation and elevated troponin. Date of service 07/30/2020: Patient is feeling better, breathing better now down to 2 L nasal prong. Feel steroids and nebulizers have helped. Short of breath when up and about in the room. No chest pain pressure or tightness or discomfort in the shoulders. His a scratchy throat. Very unnerved by his severe shortness of breath on admission. However he did bump his troponins, up to 7.4. Echo pending. Telemetry shows frequent PVCs, often bigeminy and trigeminy. Review of Systems Constitutional: Constitutional: Reports fatigue Eyes: Eyes: Reports no additional eye complaints and Reports blurry vision (H/O retinal tear) ENT: Denies epistaxis Cardiovascular: Cardiovascular: Denies chest pain, Denies pedal edema, Denies leg edema, Denies lightheadedness and Denies palpitations Respiratory: Respiratory: Denies chest congestion, Reports cough and Reports dyspnea on exertion Gastrointestinal: Gastrointestinal: Denies abdominal pain Genitourinary: Genitourinary: Denies dysuria Musculoskeletal: Musculoskeletal: Reports no additional musculoskeletal complaints Integumentary/Breasts: Skin/Breast: Denies rash Neurologic: Denies confusion Psychiatric: Psychiatric: Denies confusion Exam Narrative: Exam Narrative: Pleasant WM, somewhat anxious, NAD lying comfortably in bed Const: General: comfortable and no acute distress HENMT: General nose exam: no epistaxis Mouth: Yes moist mucous membranes Eyes: EOM: EOMs intact bilaterally Neck: Neck: supple Resp: Auscultation: diminished lung sounds Cardio: Rhythm: abnormal rhythm regularly irregular Heart sounds: no murmurs GI: Inspection: non-distended GI Palp: Yes Soft to palpation and No Firmness to palpation present (GI) Skin: General skin exam: normal color and no rashes or lesions noted Neuro: Cognition (Neuro): normal cognition Speech: normal speech Extrem: General: no edema and no pedal edema Psych: Affect: Anxious affect present Objective Data Vital Signs Vital Signs: Vital Signs - 24 hr 07/29/20 13:36 07/29/20 13:39 07/29/20 13:42 Temperature Pulse Rate 99
[2020-07-30] MEDS: METOPROLOL TARTRATE 25 MG TABLET PO (20:26)
[2020-07-31] VITALS (27 sets, daily range): BP systolic 80–131; BP diastolic 43–87; PULSE 70–94; RESP 16–20; TEMP 36–36.6; O2SAT 92–99
[2020-07-31] MEDS: IPRATROPIUM BR 0.02% INH SOLN 0.5 MG/2.5 ML VIAL INHALATION ×4 (01:54→21:00)
[2020-07-31 04:49] LABS: Hematocrit 40.4 % (42.0-52.0); Hemoglobin 13.2 g/dL (14.0-18.0); Mean Corpuscular HGB Conc 32.7 g/dl (32-36); Mean Corpuscular Volume 97.8 fl (80-100); Mean Platelet Volume 10.6 fl (7.4-10.4); Platelet Count Result 169 k/mm3 (150-375); Red Blood Count 4.13 M/mm3 (4.6-6.20); Red Cell Distribution Width 14.5 % (11.5-14.5); White Blood Count 8.5 K/mm3 (4.5-10.0)
[2020-07-31 05:03] LABS: Anion Gap 6 mmol/L (8-16); Blood Urea Nitrogen 46 mg/dL (9-20); Calcium 8.7 mg/dL (8.4-10.2); Carbon Dioxide 25 mmol/L (22-30); Chloride 105 mmol/L (98-107); Cholesterol 173 mg/dL (0-200); Estimated CRCL calculation 27 ml/min; Estimated Glomerular Filt Rate 27; Glucose 172 mg/dL (75-110); HDL Direct 54 mg/dL; Magnesium 1.9 mg/dL (1.6-2.3); Potassium 4.5 mmol/L (3.4-5.0); Sodium 136 mmol/L (137-145); Triglycerides 150 mg/dL (<150)
[2020-07-31 05:12] LABS: LDL Cholesterol Direct 84 mg/dL
[2020-07-31] MEDS: OMEGA 3 POLYUNSAT FATTY ACIDS 1 GM CAP PO (08:29)
[2020-07-31] MEDS: predniSONE 20 MG TABLET 40 MG PO (08:29)
[2020-07-31] MEDS: allopurinoL 100 MG TABLET PO (08:30)
[2020-07-31] MEDS: ASPIRIN 81 MG ENTERIC TABLET PO (08:30)
[2020-07-31] MEDS: METOPROLOL TARTRATE 25 MG TABLET PO ×2 (08:30→20:47)
[2020-07-31] MEDS: ATORVASTATIN 20 MG TABLET PO (08:30)
[2020-07-31] MEDS: VITAMIN B COMPLEX/VIT C CAPSULE 1 EACH PO (08:30)
[2020-07-31] MEDS: CHOLECALCIFEROL 1,000 UNITS TABLET 2000 UNITS PO (08:30)
[2020-07-31] MEDS: ENOXAPARIN 80 MG/0.8 ML SYRINGE SUB-Q (09:50)
--- NOTE | 2020-07-31 11:47 | PM.PNCARD ---
Progress Note: A&P Assessment and Plan (1) Acute systolic CHF (congestive heart failure): Code(s): I50.21 - Acute systolic (congestive) heart failure Status: Acute Assessment and Plan: Mild acute systolic CHF with small pleural effusions and an elevated BNP. May have received 1 dose of IV Lasix in the ER. Looks good, off O2 today. (2) Cardiomyopathy: Code(s): I42.9 - Cardiomyopathy, unspecified Status: Acute Assessment and Plan: EF 20-25%. Etiology uncertain; secondary to LBBB? CAD? Or from frequent PVCs? Change diltiazem to metoprolol. Apparently had severe hyperkalemia when on lisinopril. Add an ARB/Entresto when renal function is more stable, with close FU of renal fxn and K+; push BB for now. Counseled pt and re: CHF, cardiomyopathy, tx, reasonable expectations (most people improve though may cont to have LUTHER), etc. (3) Type 2 SC (myocardial infarction): Code(s): I21.A1 - Myocardial infarction type 2 Status: Acute Assessment and Plan: Troponins up to 7.4 in the face of an episode of hypoxia, tachycardia, tachypnea and respiratory distress with no chest pain. Probably a type 2 SC, though he does have a segmental wall motion abnormality suggestive of CAD/SC. Continue aspirin and atorvastatin. Will give full-dose Lovenox for a couple of days in view of the echo results and elevated troponin, then probably drop down to DVT prophylaxis dose on 08/02/2020. Eventual ischemia evaluation, catheterization versus Lexiscan depending on renal function etc. Possible discharge Saturday? (4) Asthma exacerbation in COPD: Code(s): J44.1 - Chronic obstructive pulmonary disease with (acute) exacerbation; J45.901 - Unspecified asthma with (acute) exacerbation Status: Acute Assessment and Plan: Admitted with respiratory failure. Severe COPD by CT scan and chest x-ray. Improving with therapy. (5) LBBB (left bundle branch block): Code(s): I44.7 - Left bundle-branch block, unspecified Status: Acute Assessment and Plan: LBBB of uncertain duration. Often associated with cardiomyopathies and heart disease. (6) PVCs (premature ventricular contractions): Code(s): I49.3 - Ventricular premature depolarization Status: Acute Assessment and Plan: Frequent asymptomatic PVCs noted. No V tach. Can lead to a cardiomyopathy. (7) SOHA (acute kidney injury): Code(s): N17.9 - Acute kidney failure, unspecified Status: Acute Assessment and Plan: May have rec'd some IV lasix in the ER, also had contrast CT. Daily BMPs. Subjective Date/time seen: 07/31/20 11:47 Interval history: Follow-up for shortness of breath, COPD exacerbation and elevated troponin. 07/30/2020: Patient is feeling better, breathing better now down to 2 L nasal prong. Feel steroids and nebulizers have helped. Short of breath when up and about in the room. No chest pain pressure or tightness or discomfort in the shoulders. His a scratchy throat. Very unnerved by his severe shortness of breath on admission. However he did bump his troponins, up to 7.4. Echo pending. Telemetry shows frequent PVCs, often bigeminy and trigeminy. Date of service 07/31/2020: Feeling better than yesterday, no shortness of breath at rest but does have some dyspnea walking to the bathroom and straining. No dizziness. Again confirms there is no anginal-type discomfort on admission. Recalls that he was having gradual onset of LUTHER over the few weeks prior to admission. Telemetry shows frequent PVCs, bigeminy and quadrigeminy. Echo is below, EF 20-25%. Review of Systems Constitutional: Constitutional: Denies weakness ENT: Denies epistaxis Cardiovascular:
--- NOTE | 2020-07-31 13:02 | PM.IMPN ---
Progress Note: A&P Assessment and Plan (1) Acute respiratory failure with hypoxemia: Code(s): J96.01 - Acute respiratory failure with hypoxia Status: Acute Assessment and Plan: [place] was tachycardic, tachypneic and hypoxic on admission. [place] related to the COPD exacerbation. Paulette has hx of tobacco use but no longer smokes. COVID negative. ABG normal but was on 6L. Better today and off O2. (2) Type 2 MT (myocardial infarction): Code(s): I21.A1 - Myocardial infarction type 2 Status: Acute Assessment and Plan: Troponin climbed to 7.4 yesterday. EKG showing LBBB with ventricular bigeminy. Echo showing EF 20-25% with global HK and basal AK; diastolic dysfunction Grade II. Unclear if the BBB is new or old. Medical management for now. Plan for ischemic evaluation after discharge. Discussed with jewelry drilling machine operator. (3) Acute systolic CHF (congestive heart failure): Code(s): I50.21 - Acute systolic (congestive) heart failure Status: Acute Assessment and Plan: No lasix given in ED. CTA showing small pleural effusion. BNP 17K. Follow elis. (4) Asthma exacerbation in COPD: Code(s): J44.1 - Chronic obstructive pulmonary disease with (acute) exacerbation; J45.901 - Unspecified asthma with (acute) exacerbation Status: Acute Assessment and Plan: CTA showing severe emphysema. Heavy smoker but quit in 2010. Patient was treated with Solu-Medrol and updrafts. Patient had clinical improvement. Weaned oxygen off. he has been transitioned to prednisone. He is not on inhalers at home. He feels his symptoms began after his COVID vaccine. Will add a LAMA at discharge. Home also with rescue inhaler. (5) Cardiomyopathy: Code(s): I42.9 - Cardiomyopathy, unspecified Status: Acute Assessment and Plan: Echo showing EF 20-25% with severe global hypokinesis with akinesis of the basal inferior septal segment. Continue Metoprolol. Patient mentioned to jewelry drilling machine operator that he has had hyperkalemia with ACEI. Discussed. (6) LBBB (left bundle branch block): Code(s): I44.7 - Left bundle-branch block, unspecified Status: Acute Assessment and Plan: Patient noted to have LBBB by EKG of unclear duration. Probably related to above. (7) PVCs (premature ventricular contractions): Code(s): I49.3 - Ventricular premature depolarization Status: Acute Assessment and Plan: Patietn with significant number of PVCs. TSH normal. COuld be contributing to his CMP. Metoprolol added. Monitor frequency of PVCs. (8) SOHA (acute kidney injury): Code(s): N17.9 - Acute kidney failure, unspecified Status: Acute Assessment and Plan: Acute on chronic kidney disease. Baseline Cr 1.4-1.7. Cr 1.7 on admission but increased to 2.4 today. Patient did not receive lasix in ED. He did get a CTA which could be causing his SOHA. Cr leveling off. Will monitor for now. (9) Benign essential hypertension: Code(s): I10 - Essential (primary) hypertension Status: Acute Assessment and Plan: Patient's blood pressure was reviewed on 07/31 Blood pressure remains well controlled. Will continue current medications. (10) Stage 3 chronic kidney disease: Code(s): N18.3 - Chronic kidney disease, stage 3 (moderate) Status: Acute Assessment and Plan: Patient with CKD with baseline 1.4-1.7. As above. (11) Gout without tophus: Code(s): M10.9 - Gout, unspecified Status: Acute Assessment and Plan: Stable. Uric acid 9.3 in May. Continue Allopurinol for now. Colchicine on hold. (12) Hyperlipidemia, unspecified: Code(s): E78.5 - Hyperlipidemia, unspecified Status: Acute Assessment and Plan: LFTs okay. TG 150, TC 173, LDL 84, HDL 54. Continue Lipitor. (13) DVT prophylaxis: Code(s): Z29.9 - Encounte
[2020-07-31] MEDS: MELATONIN 5 MG TABLET PO (20:47)
[2020-08-01] VITALS (18 sets, daily range): BP systolic 98–138; BP diastolic 64–78; PULSE 76–104; RESP 18–20; TEMP 35.6–36.7; O2SAT 93–98
[2020-08-01] MEDS: IPRATROPIUM BR 0.02% INH SOLN 0.5 MG/2.5 ML VIAL INHALATION ×4 (01:59→20:39)
[2020-08-01 05:44] LABS: Hematocrit 39.9 % (42.0-52.0); Hemoglobin 12.9 g/dL (14.0-18.0); Mean Corpuscular HGB Conc 32.3 g/dl (32-36); Mean Corpuscular Hemoglobin 32.3 pg (26-34); Mean Corpuscular Volume 99.8 fl (80-100); Mean Platelet Volume 11.3 fl (7.4-10.4); Platelet Count Result 177 k/mm3 (150-375); Red Cell Distribution Width 14.3 % (11.5-14.5); White Blood Count 7.6 K/mm3 (4.5-10.0)
[2020-08-01 05:55] LABS: Anion Gap 4 mmol/L (8-16); Blood Urea Nitrogen 52 mg/dL (9-20); Calcium 8.4 mg/dL (8.4-10.2); Carbon Dioxide 25 mmol/L (22-30); Chloride 108 mmol/L (98-107); Estimated CRCL calculation 27 ml/min; Estimated Glomerular Filt Rate 27; Glucose 108 mg/dL (75-110); Potassium 4.3 mmol/L (3.4-5.0); Sodium 137 mmol/L (137-145)
[2020-08-01 08:23] LABS: CRP 0.8 mg/dL (<1.0); Creatine Kinase 56 U/L (55-170)
[2020-08-01 08:28] LABS: Complement C3 103 mg/dL (88-165)
[2020-08-01] MEDS: OMEGA 3 POLYUNSAT FATTY ACIDS 1 GM CAP PO (09:53)
[2020-08-01] MEDS: ATORVASTATIN 20 MG TABLET PO (09:53)
[2020-08-01] MEDS: ENOXAPARIN 80 MG/0.8 ML SYRINGE SUB-Q (09:53)
[2020-08-01] MEDS: CHOLECALCIFEROL 1,000 UNITS TABLET 2000 UNITS PO (09:54)
[2020-08-01] MEDS: METOPROLOL TARTRATE 25 MG TABLET PO ×2 (09:54→20:25)
[2020-08-01] MEDS: VITAMIN B COMPLEX/VIT C CAPSULE 1 EACH PO (09:54)
[2020-08-01] MEDS: predniSONE 20 MG TABLET 40 MG PO (09:54)
[2020-08-01] MEDS: allopurinoL 100 MG TABLET PO (09:54)
[2020-08-01] MEDS: ASPIRIN 81 MG ENTERIC TABLET PO (09:54)
--- NOTE | 2020-08-01 10:36 | PM.PNCARD ---
Progress Note: A&P Additional Plan 70-year-old man with new diagnosis of significant dilated cardiomyopathy. Patient has been started on metoprolol and feels better after being diuresed over the weekend today I am going to start modest doses of spironolactone and Entresto. Patient does have reduced renal function which probably is because of low cardiac output. Renal ultrasound is going to be done this morning for further evaluation of this. Will have the [facility] customer loyalty representative contacted to fit the patient for a Life Vest device. Moreno Ricketts MD [facility] Subjective Date/time seen: Date of service: 08/01/20 10:36 Interval history: Follow-up visit in this 70-year-old man with: Shortness of breath evidence of decompensated congestive heart failure upon admission. Patient has a left bundle branch block of unknown chronicity and echocardiographic evidence of relatively severe left ventricular systolic dysfunction. He feels better following diuresis over the weekend in terms of being short of breath. He offers no other complaints this morning. Had a long discussion with the patient and his about the echocardiographic findings and the implications of his new diagnosis of cardiomyopathy. Telemetry shows sinus rhythm with frequent ventricular ectopic activity. Discussed with patient the plans to initiate a regimen of medication for his cardiomyopathy while he is in the hospital and obtain a Life Vest referral. An ischemia evaluation is in order and probably will include a Lexiscan nuclear study at some point since he has renal insufficiency and it would be desirable to avoid the risk of contrast nephropathy. Exam Const: General: comfortable and no acute distress HENMT: Mouth: Yes moist mucous membranes Eyes: Sclera: sclerae normal Pupils: Equal, round and reactive pupils present Neck: Neck: supple and no JVD Thyroid: thyroid normal Resp: Effort & Inspection: normal respiratory effort Other: Breath sounds essentially clear at this time no rales or wheezing Cardio: Rate: regular rate Rhythm: regular rhythm Other: PMI is enlarged and laterally displaced. No significant murmur GI: GI Palp: Yes Soft to palpation Auscultation: normal bowel sounds Neuro: Cognition (Neuro): normal cognition Extrem: Other: No significant residual edema Objective Data Vital Signs Vital Signs: Vital Signs - 24 hr 07/31/20 11:50 07/31/20 12:00 07/31/20 14:00 Temperature 36.6 C Pulse Rate 72 81 82 Respiratory Rate 18 Blood Pressure 110/67 Pulse Oximetry 94 07/31/20 14:20 07/31/20 14:31 07/31/20 16:00 Temperature 36.6 C Pulse Rate 86 84 82 Respiratory Rate 20 20 16 Blood Pressure 80/43 L Pulse Oximetry 94 07/31/20 16:12 07/31/20 18:00 07/31/20 20:00 Temperature 36.6 C Pulse Rate 84 86 93 Respiratory Rate 20 Blood Pressure 117/87 131/83 Pulse Oximetry 92 07/31/20 20:47 07/31/20 21:08 07/31/20 21:09 Temperature Pulse Rate 94 89 87 Respiratory Rate 20 20 Blood Pressure Pulse Oximetry 92 07/31/20 22:00 07/31/20 23:52 07/31/20 23:57 Temperature 36.0 C L Pulse Rate 84 89 92 Respiratory Rate 18 18 Blood Pressure 118/65 Pulse Oximetry 94 94 08/01/20 02:00 08/01/20 02:05 08/01/20 04:00 Temperature 36.4 C Pulse Rate 86 87 89 Respiratory Rate 20 20 18 Blood Pressure 127/73 Pulse Oximetry 96 08/01/20 05:19 08/01/20 08:00 08/01/20 08:17 Temperature 36.1 C L Pulse Rate 86 95 92 Respiratory Rate 18 18 Blood Pressure 128/73 Pulse Oximetry 96 95 Intake/Output Intake/Output: Intake & Output 07/29/20 07/30/20 07/31/20 08/01/20 23:59 23:59 23:59 23:59 Intake Total 1100 2322 1940 600 Output Total 675 770 266 7658 Balance 425 1422 1740 -400 Meds/Results Medications: Active Medications Generic Name Dose Route Start Last Admin Trade Name Chiq PRN Reason Stop Dose Admin Acetaminophen 650 mg 07/29/20 08:09 Acetaminophen 325 Mg Tablet PO
--- NOTE | 2020-08-01 12:18 | PM.IMPN ---
Progress Note: A&P Assessment and Plan (1) Acute respiratory failure with hypoxemia: Code(s): J96.01 - Acute respiratory failure with hypoxia Status: Acute Assessment and Plan: [place] was tachycardic, tachypneic and hypoxic on admission. [place] related to the COPD exacerbation. Patient has hx of tobacco use but no longer smokes. COVID negative. ABG normal but was on 6L. Stable and remains off O2. (2) Type 2 [place] (myocardial infarction): Code(s): I21.A1 - Myocardial infarction type 2 Status: Acute Assessment and Plan: Troponin climbed to 7.4. EKG showing LBBB with ventricular bigeminy. Echo showing EF 20-25% with global HK and basal AK; diastolic dysfunction Grade II. Unclear if the BBB is new or old. Medical management for now. Plan for ischemic evaluation per cardiology. (3) Acute systolic CHF (congestive heart failure): Code(s): I50.21 - Acute systolic (congestive) heart failure Status: Acute Assessment and Plan: No lasix given in ED. CTA showing small pleural effusion. BNP 17K. Follow closely. (4) Asthma exacerbation in COPD: Code(s): J44.1 - Chronic obstructive pulmonary disease with (acute) exacerbation; J45.901 - Unspecified asthma with (acute) exacerbation Status: Acute Assessment and Plan: CTA showing severe emphysema. Heavy smoker but quit in 2010. Patient was treated with Solu-Medrol and updrafts. Patient had clinical improvement. Weaned off oxygen. He has been transitioned to prednisone. He is not on inhalers at home. He feels his symptoms began after his COVID vaccine. Will add a LAMA at discharge. Home also with rescue inhaler. (5) Cardiomyopathy: Code(s): I42.9 - Cardiomyopathy, unspecified Status: Acute Assessment and Plan: Echo showing EF 20-25% with severe global hypokinesis with akinesis of the basal inferior septal segment. Continue Metoprolol. Patient mentioned to poultry service technician that he has had hyperkalemia with ACEI. Entresto and Spironolactone added today. Plan for LifeVest before discharge. (6) LBBB (left bundle branch block): Code(s): I44.7 - Left bundle-branch block, unspecified Status: Acute Assessment and Plan: Patient noted to have LBBB by EKG of unclear duration. Probably related to above. (7) PVCs (premature ventricular contractions): Code(s): I49.3 - Ventricular premature depolarization Status: Acute Assessment and Plan: Patient with significant number of PVCs. TSH normal. Could be contributing to his CMP. Metoprolol added. Monitor frequency of PVCs by tele. (8) SOHA (acute kidney injury): Code(s): N17.9 - Acute kidney failure, unspecified Status: Acute Assessment and Plan: Acute on chronic kidney disease. Baseline Cr 1.4-1.7. Cr 1.7 on admission but increased to 2.4 yesterday and unchanged today. Good UOP yesterday so could be post-ATN diuresis. Patient did not receive lasix in ED. He did get a CTA which could be causing his SOHA. Cr leveling off. Check renal US, urine eos, etc. Monitor closely on Entresto and Spironolactone Renal US showing left renal cyst o/w normal. (9) Benign essential hypertension: Code(s): I10 - Essential (primary) hypertension Status: Acute Assessment and Plan: Patient's blood pressure was reviewed on 08/01 Blood pressure dropped to 80/43 yesterday afternoon but better 12 minutes later; measurement error? BP otherwise remains well controlled. Will continue current medications. Watch closely on these new medications. (10) Stage 3 chronic kidney disease: Code(s): N18.3 - Chronic kidney disease, stage 3 (moderate) Status: Acute Assessment and Plan: Patient with CKD with baseline 1.4-1.7. As above. (11) Gout without tophus: Code(s): M10.9 - Gout, unspecified Status: Acute Assessment and Plan
[2020-08-01] MEDS: SPIRONOLACTONE 25 MG TABLET PO (12:27)
[2020-08-01 17:34] LABS: Sodium Urine Random 19 meq/L
[2020-08-01 18:22] LABS: Eosinophil Urine None Seen % (None Seen)
[2020-08-01] MEDS: MELATONIN 5 MG TABLET PO (20:24)
[2020-08-01] MEDS: SACUBITRIL/VALSARTAN 24-26 MG TABLET 1 TAB PO (20:24)
[2020-08-02] VITALS (16 sets, daily range): BP systolic 100–119; BP diastolic 73–86; PULSE 52–105; RESP 18–20; TEMP 36.1–36.6; O2SAT 92–98
[2020-08-02] MEDS: IPRATROPIUM BR 0.02% INH SOLN 0.5 MG/2.5 ML VIAL INHALATION ×3 (02:01→14:14)
[2020-08-02 04:55] LABS: Hematocrit 41.5 % (42.0-52.0); Hemoglobin 13.4 g/dL (14.0-18.0); Mean Corpuscular HGB Conc 32.3 g/dl (32-36); Mean Corpuscular Hemoglobin 31.4 pg (26-34); Mean Corpuscular Volume 97.2 fl (80-100); Mean Platelet Volume 11.2 fl (7.4-10.4); Platelet Count Result 185 k/mm3 (150-375); Red Blood Count 4.27 M/mm3 (4.6-6.20); Red Cell Distribution Width 14.1 % (11.5-14.5); White Blood Count 6.3 K/mm3 (4.5-10.0)
[2020-08-02 05:09] LABS: Anion Gap 4 mmol/L (8-16); Blood Urea Nitrogen 51 mg/dL (9-20); Calcium 8.2 mg/dL (8.4-10.2); Carbon Dioxide 24 mmol/L (22-30); Chloride 110 mmol/L (98-107); Estimated CRCL calculation 31 ml/min; Estimated Glomerular Filt Rate 31; Glucose 98 mg/dL (75-110); Phosphorus 4.1 mg/dL (2.5-4.5); Potassium 4.4 mmol/L (3.4-5.0); Sodium 138 mmol/L (137-145)
[2020-08-02] MEDS: ASPIRIN 81 MG ENTERIC TABLET PO (08:32)
[2020-08-02] MEDS: ENOXAPARIN 30 MG/0.3 ML SYRINGE SUB-Q (08:32)
[2020-08-02] MEDS: OMEGA 3 POLYUNSAT FATTY ACIDS 1 GM CAP PO (08:32)
[2020-08-02] MEDS: METOPROLOL TARTRATE 25 MG TABLET PO (08:33)
[2020-08-02] MEDS: CHOLECALCIFEROL 1,000 UNITS TABLET 2000 UNITS PO (08:33)
[2020-08-02] MEDS: allopurinoL 100 MG TABLET PO (08:33)
[2020-08-02] MEDS: VITAMIN B COMPLEX/VIT C CAPSULE 1 EACH PO (08:33)
[2020-08-02] MEDS: predniSONE 20 MG TABLET 40 MG PO (08:33)
[2020-08-02] MEDS: SPIRONOLACTONE 25 MG TABLET PO (08:33)
[2020-08-02] MEDS: ATORVASTATIN 20 MG TABLET PO (08:33)
[2020-08-02] MEDS: SACUBITRIL/VALSARTAN 24-26 MG TABLET 1 TAB PO (10:15)
--- NOTE | 2020-08-02 10:16 | PM.PNCARD ---
Progress Note: A&P Assessment and Plan (1) Acute systolic CHF (congestive heart failure): Code(s): I50.21 - Acute systolic (congestive) heart failure Status: Acute Assessment and Plan: Mild acute systolic CHF with small pleural effusions and an elevated BNP. Looks good, off O2, euvolemic. Okay for discharge today. (2) Cardiomyopathy: Code(s): I42.9 - Cardiomyopathy, unspecified Status: Acute Assessment and Plan: EF 20-25%. Etiology uncertain; secondary to LBBB? CAD? Or from frequent PVCs? Changed diltiazem to metoprolol. Apparently had severe hyperkalemia when on lisinopril. Added Entresto Chnage metoprolol tartrate to metoprolol succinate 50 mg qd Counseled pt and re: CHF, cardiomyopathy, tx, reasonable expectations (most people improve though may cont to have LUTHER), Life Vest, etc.. (3) Type 2 [place] (myocardial infarction): Code(s): I21.A1 - Myocardial infarction type 2 Status: Acute Assessment and Plan: Troponins up to 7.4 in the face of an episode of hypoxia, tachycardia, tachypnea and respiratory distress with no chest pain. Probably a type 2 [place], though he does have a segmental wall motion abnormality suggestive of CAD/[place]. Continue aspirin and atorvastatin. Gave full-dose Lovenox for 2 days in view of the echo results and elevated troponin Will schedule Lexiscan as an outpatient. Possible discharge today. (4) Asthma exacerbation in COPD: Code(s): J44.1 - Chronic obstructive pulmonary disease with (acute) exacerbation; J45.901 - Unspecified asthma with (acute) exacerbation Status: Acute Assessment and Plan: Admitted with respiratory failure. Severe COPD by CT scan and chest x-ray. Improving with therapy. (5) LBBB (left bundle branch block): Code(s): I44.7 - Left bundle-branch block, unspecified Status: Acute Assessment and Plan: LBBB of uncertain duration. Often associated with cardiomyopathies and heart disease. (6) PVCs (premature ventricular contractions): Code(s): I49.3 - Ventricular premature depolarization Status: Acute Assessment and Plan: Frequent asymptomatic PVCs noted. No V tach. Can lead to a cardiomyopathy. Frequency appears to be markedly reduced with beta-nicolás. (7) SOHA (acute kidney injury): Code(s): N17.9 - Acute kidney failure, unspecified Status: Acute Assessment and Plan: May have rec'd some IV lasix in the ER, also had contrast CT. Improving. Will need to follow potassium very closely since he has had hyperkalemia in the past and is currently on Entresto and spironolactone. BMP 1 week after discharge. Subjective Date/time seen: 08/02/20 10:16 Interval history: Follow-up visit in this 70-year-old man with: 08/01/2020 visit: Shortness of breath evidence of decompensated congestive heart failure upon admission. Patient has a left bundle branch block of unknown chronicity and echocardiographic evidence of relatively severe left ventricular systolic dysfunction. He feels better following diuresis over the weekend in terms of being short of breath. He offers no other complaints this morning. Had a long discussion with the patient and his about the echocardiographic findings and the implications of his new diagnosis of cardiomyopathy. Telemetry shows sinus rhythm with frequent ventricular ectopic activity. Discussed with patient the plans to initiate a regimen of medication for his cardiomyopathy while he is in the hospital and obtain a Life Vest referral. An ischemia evaluation is in order and probably will include a Lexiscan nuclear study at some point since he has renal insufficiency and it would be desirable to avoid the risk of contr
--- NOTE | 2020-08-02 15:15 | PM.DS ---
DS: Admitting Diagnosis Admitting Diagnosis Admitting Diagnosis: Shortness of breath DS: Discharge Diagnosis Discharge Diagnosis (1) Acute respiratory failure with hypoxemia: Code(s): J96.01 - Acute respiratory failure with hypoxia Status: Acute Assessment and Plan: Patient was tachycardic, tachypneic and hypoxic on admission. Likely secondary to COPD exacerbation. (2) Type 2 [place] (myocardial infarction): Code(s): I21.A1 - Myocardial infarction type 2 Status: Acute Assessment and Plan: Troponin climbed to 7.4. EKG showing LBBB with ventricular bigeminy. Echo showing EF 20-25% with global HK and basal AK; diastolic dysfunction Grade II. (3) Acute systolic CHF (congestive heart failure): Code(s): I50.21 - Acute systolic (congestive) heart failure Status: Acute Assessment and Plan: CTA showing small pleural effusion. (4) Asthma exacerbation in COPD: Code(s): J44.1 - Chronic obstructive pulmonary disease with (acute) exacerbation; J45.901 - Unspecified asthma with (acute) exacerbation Status: Acute Assessment and Plan: CTA showing severe emphysema. Heavy smoker but quit in 2010. Patient was treated with Solu-Medrol and updrafts and did well. (5) Cardiomyopathy: Code(s): I42.9 - Cardiomyopathy, unspecified Status: Acute Assessment and Plan: Echo showing EF 20-25% with severe global hypokinesis with akinesis of the basal inferior septal segment. Pt had life vest placed on discharge. (6) LBBB (left bundle branch block): Code(s): I44.7 - Left bundle-branch block, unspecified Status: Acute Assessment and Plan: Patient noted to have LBBB by EKG of unclear duration. (7) PVCs (premature ventricular contractions): Code(s): I49.3 - Ventricular premature depolarization Status: Acute Assessment and Plan: Patient with significant number of PVCs. Seen by cardiology. (8) SOHA (acute kidney injury): Code(s): N17.9 - Acute kidney failure, unspecified Status: Acute Assessment and Plan: Acute on chronic kidney disease. Baseline Cr 1.4-1.7. (9) Benign essential hypertension: Code(s): I10 - Essential (primary) hypertension Status: Acute Assessment and Plan: Patient's blood pressure was observed in the hospital. (10) Stage 3 chronic kidney disease: Code(s): N18.3 - Chronic kidney disease, stage 3 (moderate) Status: Acute Assessment and Plan: Patient with CKD with baseline 1.4-1.7. As above. (11) Gout without tophus: Code(s): M10.9 - Gout, unspecified Status: Acute Assessment and Plan: Stable. Uric acid 9.3 in May. Continue Allopurinol for now. Colchicine on hold. (12) Hyperlipidemia, unspecified: Code(s): E78.5 - Hyperlipidemia, unspecified Status: Acute Assessment and Plan: LFTs okay. TG 150, TC 173, LDL 84, HDL 54. Continue Lipitor. DS: Summary Hospital Course Hospital Course: 70 year old EKG showing left bundle branch patient is seen by Cardiology recommending to diurese the patient. Pt also treated for COPD excerbation. Pt had cardiac echo, patient does not need any emergent intervention. Pt seen by cardiology pt had life vest placed on discharge as he was having some PVCs. Pt to follow with cardiology, does not usually come to hospital. Time Spent with Patient Time attestation: Total time spent providing and/or coordinating discharge services:40 minutes on day of discharge Exam Narrative: Exam Narrative: Generally: friendly, chronically ill, man Chest - clear CV - irregularly irregular; Tele showing frequent PVCs Abd - Soft, NT/ND, Positive BS, protuberant Ext - trace pedal edema Psych - normal mood Skin - Warm and dry DS: Data Data Completed and Pending Labs on day of discharge: Labs from last 24 hours 08/02/20
[2020-08-04 05:20] LABS: Albumin 2.7 g/dL (3.8-4.8); Alpha 1 Globulin 0.3 g/dL (0.2-0.3); Alpha 2 Globulin 0.8 g/dL (0.5-0.9); Beta 1 Globulin 0.4 g/dL (0.4-0.6); Gamma Globulin 0.8 g/dL (0.8-1.7); Protein, Total 5.4 g/dL (6.1-8.1)
== END 2020-08-02 17:10 | disposition home or self-care (01) | DRG 190 ==
LOC: ANHED 08:11 → ANHIMU 08:44
PROVIDERS: Emergency Medicine; Internal Medicine; Admitting Provider Family Medicine; Emergency Provider Emergency Medicine; PCP Internal Medicine; Visit Provider Family Medicine
DX: J43.9 Emphysema, unspecified (principal); I21.A1 Myocardial infarction type 2; I50.41 Acute combined systolic (congestive) and diastolic (congestive) heart failure; J96.01 Acute respiratory failure with hypoxia; I13.0 Hypertensive heart and chronic kidney disease with heart failure and stage 1 through stage 4 chronic kidney disease, or unspecified chronic kidney disease; N17.9 Acute kidney failure, unspecified; I42.0 Dilated cardiomyopathy; Z20.822 Contact with and (suspected) exposure to COVID-19; N18.30 Chronic kidney disease, stage 3 unspecified; I44.7 Left bundle-branch block, unspecified; I49.3 Ventricular premature depolarization; M10.9 Gout, unspecified; E78.5 Hyperlipidemia, unspecified; Z87.891 Personal history of nicotine dependence; E87.5 Hyperkalemia
CPT/HCPCS: 36415; 36600; 71045; 71275; 76775; 80048; 80053; 80061; 81001; 82550; 82607; 82746; 82805; 83735; 83880; 84100; 84155; 84165; 84300; 84443; 84484; 85025; 85027; 85380; 85610; 85730; 85999; 86140; 86160; 93005; 93306; 93970; 94640; 96361; 96372; 96374; 96375; 96376; 99285; A9270; C9803; G0378; J1650; J2060; J2930; J7030; J7512; Q9967; U0003; U0005

== ENCOUNTER 2020-08-18 11:17 | Outpatient (CLI) | payer MEDICARE, SELFPAY ==
[2020-08-18 14:10] LABS: Anion Gap 8 mmol/L (8-16); Blood Urea Nitrogen 35 mg/dL (9-20); Calcium 9.1 mg/dL (8.4-10.2); Carbon Dioxide 21 mmol/L (22-30); Chloride 111 mmol/L (98-107); Estimated Glomerular Filt Rate 35; Glucose 88 mg/dL (75-110); Potassium 5.7 mmol/L (3.4-5.0); Sodium 140 mmol/L (137-145)
== END 2020-08-18 11:18 | disposition home or self-care (01) ==
PROVIDERS: PCP Internal Medicine; Visit Provider Internal Medicine Cardiovascular Disease
DX: I42.9 Cardiomyopathy, unspecified (principal)
CPT/HCPCS: 36415; 80048

== ENCOUNTER 2020-08-22 11:25 | Outpatient (CLI) | payer MEDICARE, SELFPAY ==
[2020-08-22 12:34] LABS: Anion Gap 3 mmol/L (8-16); Blood Urea Nitrogen 30 mg/dL (9-20); Calcium 9.2 mg/dL (8.4-10.2); Carbon Dioxide 29 mmol/L (22-30); Chloride 108 mmol/L (98-107); Estimated Glomerular Filt Rate 35; Glucose 111 mg/dL (75-110); Potassium 4.6 mmol/L (3.4-5.0); Sodium 140 mmol/L (137-145)
== END 2020-08-22 11:26 | disposition home or self-care (01) ==
PROVIDERS: PCP Internal Medicine; Visit Provider Internal Medicine Cardiovascular Disease
DX: N18.9 Chronic kidney disease, unspecified (principal); I50.9 Heart failure, unspecified
CPT/HCPCS: 36415; 80048

== ENCOUNTER → 2020-08-30 03:48 | Outpatient (CLI) | payer MEDICARE, SELFPAY ==
[2020-08-30 20:31] LABS: SARS-CoV-2 RNA PCR Negative
== END ==
PROVIDERS: PCP Internal Medicine; Visit Provider Specialist
DX: Z01.812 Encounter for preprocedural laboratory examination (principal); Z20.822 Contact with and (suspected) exposure to COVID-19
CPT/HCPCS: C9803; U0003; U0005

== ENCOUNTER 2020-09-03 09:37 | Observation (INO) | payer MEDICARE, SELFPAY ==
[2020-09-03] VITALS (25 sets, daily range): BP systolic 111–150; BP diastolic 74–100; PULSE 78–100; RESP 17–31; TEMP 36.7–37.3; O2SAT 90–99; BMI 26.9
--- NOTE | ~2020-09-03 | XR_ITS ---
EXAMINATION: XR chest 1V portable DATE: 09/03/2020 11:01 INDICATION: Shortness of breath. TECHNIQUE: A single frontal view of the chest was obtained on 2 radiographs. COMPARISON: Chest single view 07/29/2020, chest CT 07/29/2020 FINDINGS: There are lucencies in the lungs, consistent with emphysema. There are interstitial opaciti es in the mid and lower lung zones, consistent with mild pulmonary edema. No pleural effusion or pneu mothorax. The heart size is normal. IMPRESSION: 1. Mild pulmonary edema. 2. Emphysema. Reviewed, dictated and finalized at location A.
--- NOTE | ~2020-09-03 | US_ITS ---
EXAMINATION: US venous doppler LE RT DATE: 09/03/2020 10:48 INDICATION: Right lower limb swelling. TECHNIQUE: Grayscale ultrasound images without and with compression and Doppler ultrasound images of the right lower extremity veins were obtained. COMPARISON: Ultrasound 07/30/2020 FINDINGS: The visualized portions of right common femoral vein, profunda (deep) femoral vein, femoral vein, pop liteal vein, peroneal veins, posterior tibial veins, and greater saphenous vein outflow are patent. IMPRESSION: 1. No deep venous thrombosis. Reviewed, dictated and finalized at location A.
--- NOTE | 2020-09-03 10:17 | ECG_ITS ---
Measurements Intervals [place] Rate: 103 P: 67 IA: 116 QRS: -17 QRSD: 171 T: 129 QT: 389 QTc: 512 Interpretive Statements SINUS TACHYCARDIA WITH SHORT IA INTERVAL FREQUENT VENTRICULAR PREMATURE COMPLEXES LEFT ATRIAL ENLARGEMENT LEFT BUNDLE BRANCH BLOCK BASELINE ARTIFACT- I, II, III, AVR, AVL, AVF, V5-V6 ABNORMAL ECG Electronically Signed On 09-03-2020 12:06:26 CDT by Jose Toure D.O.
--- NOTE | 2020-09-03 10:30 | ED.SOB ---
HPI - SOB/Dyspnea General Chief Complaint: Shortness of Breath/Dyspnea Stated Complaint: CP Time Seen by Provider: 09/03/20 09:59 Source: patient Mode of arrival: ambulatory Limitations: no limitations History of Present Illness HPI Narrative: This is a 70 year old male with history of COPD, CHF who presents for evaluation of shortness of breath. Patient was admitted at [place] 1 months ago for shortness of breath due to COPD and CHF. He was discharged with live vest and he had an outpatient stress test. He states his stress test was abnormal so he has been scheduled for cardiac catheterization on Saturday. Patient's reports he has gained 10 pounds since yesterday but patient states he has not gained 10 pounds. He does report swelling to his right leg for past week, but he attributes his swelling to gout. He states his right leg swelling when he has gout. His reports his shortness of breath as continued to increase. He denies chest pain. He denies abdominal pain, nausea or vomiting. He also denies orthopnea. Related Data Home Medications Medication Instructions Recorded Confirmed aspirin 81 mg tablet,delayed 81 mg PO DAILY 05/20/19 09/03/20 release omega-3 fatty acids 1,000 mg 1,000 mg PO DAILY 05/20/19 09/03/20 capsule B-complex with vitamin C 1 tablet PO DAILY 05/30/20 09/03/20 Allergies Allergy/AdvReac Type Severity Reaction Status Date / Time No Known Allergies Allergy Verified 09/03/20 09:44 Review of Systems Review of Systems: All systems reviewed & are unremarkable except as noted in HPI and below PMFSH Past Medical History Medical History (Updated 09/03/20 @ 18:52 by Jolene Flores MD) Benign essential hypertension Blindness of right eye Cardiomyopathy CHF (congestive heart failure) 07/29/2020 calculated ejection fraction 20% visualized emanation 20 25% diastolic dysfunction is present Gout without tophus Hyperlipidemia, unspecified LBBB (left bundle branch block) Screening for colon cancer Screening for prostate cancer Surgical History Surgical History (Updated 09/03/20 @ 15:04 by Marimar Bennett NP) H/O bilateral cataract extraction With lens implant H/O eye surgery History of retinal detachment with surgical repair Family History Family History Mother Family history of Alzheimer's disease Father Family history of pancreatic cancer Social History Social History (Updated 09/03/20 @ 15:05 by Marimar Bennett NP) Social History: The patient lives with his . He does not dates his and his daughter to be the durable power mergers and acquisitions attorney for healthcare. The patient desires to be a full code but does not want to live in a vegetative state. 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 The patient has 3 children. He quit smoking in 2010. He denies any alcohol marijuana or illicit drugs. Smoking packs per day: 2 Smoking cigarettes per day: 40.0 Years smoked: 40 Smoking pack-years: 80.00 Smoking status: Former smoker Tobacco type: cigarettes Smoking end date: 11/17/10 Alcohol intake: current Drinks per week: 42 Substance use: current Substance use type: marijuana Other substance usage details: occasionally Gender identity (if verbalized by the patient): Male Spiritual care concerns: No Exam Const: General: alert and ill appearing Orientation/consciousness: patient oriented x3 Eyes: Pupils: Equal, round and reactive pupils present EOM: EOMs intact bilaterally Resp: Effort & Inspection: labored (mildly) and no retractions Auscultation: crackles Cardio: Rate: regular rate Rhythm: regular rhythm Heart sounds: no murmurs GI: GI Palp: Yes Soft to palpation, No Tenderness to palpation present (GI) and No Guarding due to palpation present (GI) Auscultation: normal bowel sounds Neuro: General: patient oriented x3 and moves all extremities Extrem: Other: r
[2020-09-03 10:35] LABS: Alveolar/Arterial O2 Gradient 36.5 mmHg; Carboxyhemoglobin 0.5 % THb (0-2.0); Fractional Inspired Oxygen 21 %; HCO3 ABG 18.7 mEq/l (22.0-26.0); Methemoglobin ABG 0.2 %THb (0-1.5); Oxygen Content ABG 17.4 %vol (16.0-22.0); Oxygen Saturation ABG 94.1 % (95.0-100.0); PCO2 ABG 34.1 mmHg (35.0-45.0); PO2 ABG 72.4 mmHg (80.0-100.0); PO2 FiO2 Ratio Arterial Blood 3.45 %; Reduced Hemoglobin 6.3 %THb (0-5.0); Total Hemoglobin 13.3 g/dL (12.0-18.0); pH ABG 7.356 (7.350-7.450)
[2020-09-03 10:36] LABS: Device ROOM AIR; Modified Allen's Test Pass; Site Drawn LEFT RADIAL
[2020-09-03 10:39] LABS: Basophils Percent Auto 0.4 % (0.2-1.2); Eosinophils Absolute Auto 0.1 K/mm3 (0-0.3); Eosinophils Percent Auto 1.2 % (0-4.4); Hematocrit 41.9 % (42.0-52.0); Hemoglobin 13.4 g/dL (14.0-18.0); Immature Granulocyte Absolute 0.01 K/mm3 (0.00-0.031); Immature Granulocyte Percent A 0.1 % (0-0.5); Lymphocytes Absolute Auto 2.07 K/mm3 (0.9-3.2); Lymphocytes Percent Auto 27.3 % (18.3-44.2); Mean Corpuscular Hemoglobin 31.3 pg (26-34); Mean Corpuscular Volume 97.9 fl (80-100); Monocytes Absolute Auto 0.6 K/mm3 (0.1-0.6); Monocytes Percent Auto 8.2 % (2.6-8.5); Neutrophils Absolute Auto 4.8 K/mm3 (1.3-6.7); Neutrophils Percent Auto 62.8 % (45.5-73.1); Platelet Count Result 249 k/mm3 (150-375); Red Blood Count 4.28 M/mm3 (4.6-6.20); Red Cell Distribution Width 13.1 % (11.5-14.5); White Blood Count 7.6 K/mm3 (4.5-10.0)
[2020-09-03 10:47] LABS: Anion Gap 9 mmol/L (8-16); Blood Urea Nitrogen 23 mg/dL (9-20); Calcium 9.5 mg/dL (8.4-10.2); Carbon Dioxide 25 mmol/L (22-30); Chloride 111 mmol/L (98-107); Estimated CRCL calculation 38 ml/min; Estimated Glomerular Filt Rate 40; Glucose 104 mg/dL (75-110); Potassium 4.8 mmol/L (3.4-5.0); Sodium 145 mmol/L (137-145)
[2020-09-03 10:56] LABS: INR 0.9; Prothrombin Time 12.6 Seconds (11.1-14.7)
[2020-09-03 10:57] LABS: Partial Thromboplastin Time 32.7 SECONDS (22.3-36.8)
[2020-09-03 10:59] LABS: NT Pro B Type Natriuretic Pept 25000 pg/mL (5-100); Troponin I 0.029 ng/mL (0.000-0.034)
[2020-09-03] MEDS: FUROSEMIDE INJ 40 MG/4 ML VIAL IV PUSH ×2 (11:43→20:58)
--- NOTE | 2020-09-03 13:17 | PC.NURSE ---
This patient, Caleb Martines, was admitted to IMU Room 206-02. Patient/family oriented to hospital policies and general routines including ID bracelet, bed and alarms, visiting hours, pain management, procedures, bathroom and other care routines, personal items, smoking policy, room service/diet, and visiting hours. Information on how to activate the Rapid Response Team has been discussed. Patient/Family are encouraged to report perceived risks to care and to ask questions if they do not understand what they are told or what they should do.
--- NOTE | 2020-09-03 14:54 | PM.IMHP ---
H&P: HPI History of Present Illness Date/Time: 09/03/20 14:54 this is a 70-year-old male patient who has a past medical history of COPD and congestive heart failure. Patient's last echo shows an EF of 25-30%. The patient was scheduled for a cardiac catheterization yesterday but did not have insurance approval and is approved for Saturday. Patient is not having any chest pain. But he is having orthopnea and dyspnea on exertion. The patient has been taking his medications as prescribed. He has had some swelling to his right ankle. The patient took his life vest off when he came to the hospital. Otherwise he has been wearing his life vest. Creatinine 1.7 today and was 1.9 approximately 2 weeks ago. That the patient had a 10 lb weight gain since yesterday. But the patient said he has not gained that much weight. He does have a history of gout. The patient stated that he got short of breath during the night and has been short of breath since then. He currently is not on any oxygen. Chest x-ray was read as mild pulmonary edema and emphysema. Venous Dopplers no deep vein thrombosis. Patient was given IV Lasix in the emergency room. The patient is being admitted for observation on the date of service of 09/03/2020. Chief Complaint: Shortness of breath Review of Systems Review of Systems: All systems reviewed & are unremarkable except as noted in HPI and below Constitutional: Constitutional: Reports as per HPI and Reports no additional constitutional complaints Eyes: Eyes: Reports as per HPI and Reports no additional eye complaints ENT: Reports system reviewed and no additional complaints, except as documented and Reports Normal hearing present Cardiovascular: Cardiovascular: Reports no additional cardiovascular complaints Respiratory: Respiratory: Reports no additional respiratory complaints and Reports no additional respiratory complaints Gastrointestinal: Gastrointestinal: Reports as per HPI and Reports no additional gastrointestinal complaints Musculoskeletal: Musculoskeletal: Reports no additional musculoskeletal complaints Integumentary/Breasts: Skin/Breast: Reports system reviewed and no additional complaints, except as docu and Reports as per HPI Neurologic: Reports system reviewed and no additional complaints, except as documented, Reports as per HPI and Reports Normal hearing present Psychiatric: Psychiatric: Reports no additional psychiatric complaints and Reports as per HPI Endocrine: Endocrine: Reports no additional endocrine complaints Hematologic/Lymphatic: Hematologic/Lymphatic: Reports no additional hematologic/lymphatic complaints Allergic/Immunologic: Allergic/Immunologic: Reports no additional allergic/immunologic complaints [facility] Past Medical History Medical History (Updated 09/03/20 @ 15:04 by Marimar Bennett NP) Benign essential hypertension Blindness of right eye Cardiomyopathy CHF (congestive heart failure) 07/29/2020 calculated ejection fraction 20% visualized emanation 20 25% diastolic dysfunction is present Gout without tophus Hyperlipidemia, unspecified LBBB (left bundle branch block) Screening for colon cancer Screening for prostate cancer Surgical History Surgical History (Updated 09/03/20 @ 15:04 by Marimar Bennett NP) H/O bilateral cataract extraction With lens implant H/O eye surgery History of retinal detachment with surgical repair Family History Family History Mother Family history of Alzheimer's disease Father Family history of pancreatic cancer Social History Social History (Updated 09/03/20 @ 15:05 by Marimar Bennett NP) Social History: The patient lives with his . He does not dates his and his daughter to be the durable power litigation attorney for healthcare. The patient desires to be a full code but does not want to live in a vegetative state. 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 The patient h
[2020-09-03] MEDS: IPRATROPIUM BR 0.02% INH SOLN 0.5 MG/2.5 ML VIAL INHALATION (16:08)
[2020-09-03] MEDS: SACUBITRIL/VALSARTAN 24-26 MG TABLET 1 TAB PO (20:58)
[2020-09-03] MEDS: methylPREDNISolone SOD SUCC 125 MG VIAL 60 MG IV PUSH (21:01)
[2020-09-04] VITALS (22 sets, daily range): BP systolic 97–168; BP diastolic 48–72; PULSE 56–98; RESP 16–20; TEMP 36–37.1; O2SAT 92–97
[2020-09-04 05:14] LABS: Basophils Percent Auto 0.2 % (0.2-1.2); Hematocrit 37.6 % (42.0-52.0); Hemoglobin 12.3 g/dL (14.0-18.0); Immature Granulocyte Absolute 0.01 K/mm3 (0.00-0.031); Immature Granulocyte Percent A 0.2 % (0-0.5); Lymphocytes Absolute Auto 0.63 K/mm3 (0.9-3.2); Lymphocytes Percent Auto 12.3 % (18.3-44.2); Mean Corpuscular HGB Conc 32.7 g/dl (32-36); Mean Corpuscular Hemoglobin 31.5 pg (26-34); Mean Corpuscular Volume 96.4 fl (80-100); Mean Platelet Volume 10.6 fl (7.4-10.4); Monocytes Absolute Auto 0.1 K/mm3 (0.1-0.6); Neutrophils Absolute Auto 4.4 K/mm3 (1.3-6.7); Neutrophils Percent Auto 85.3 % (45.5-73.1); Platelet Count Result 208 k/mm3 (150-375); White Blood Count 5.1 K/mm3 (4.5-10.0)
[2020-09-04 05:34] LABS: Anion Gap 10 mmol/L (8-16); Blood Urea Nitrogen 27 mg/dL (9-20); Calcium 9.1 mg/dL (8.4-10.2); Carbon Dioxide 24 mmol/L (22-30); Chloride 106 mmol/L (98-107); Estimated CRCL calculation 34 ml/min; Estimated Glomerular Filt Rate 35; Glucose 169 mg/dL (75-110); Magnesium 1.5 mg/dL (1.6-2.3); Potassium 4.3 mmol/L (3.4-5.0); Sodium 140 mmol/L (137-145)
[2020-09-04 06:51] LABS: Thyroid Stimulating Hormone Reflex 0.574 uIU/mL (0.465-4.68)
[2020-09-04] MEDS: methylPREDNISolone SOD SUCC 125 MG VIAL 60 MG IV PUSH ×3 (06:51→20:40)
[2020-09-04] MEDS: ASPIRIN 81 MG ENTERIC TABLET PO (08:34)
[2020-09-04] MEDS: ATORVASTATIN 20 MG TABLET PO (08:34)
[2020-09-04] MEDS: FUROSEMIDE INJ 40 MG/4 ML VIAL IV PUSH (08:35)
[2020-09-04] MEDS: allopurinoL 100 MG TABLET PO (08:35)
[2020-09-04] MEDS: SACUBITRIL/VALSARTAN 24-26 MG TABLET 1 TAB PO ×2 (08:35→20:40)
[2020-09-04] MEDS: METOPROLOL SUCCINATE EXT REL 50 MG TABCR PO (08:35)
[2020-09-04] MEDS: VITAMIN B COMPLEX/VIT C CAPSULE 1 EACH PO (08:36)
[2020-09-04] MEDS: OMEGA 3 POLYUNSAT FATTY ACIDS 1 GM CAP PO (08:36)
[2020-09-04] MEDS: SPIRONOLACTONE 25 MG TABLET PO (08:36)
--- NOTE | 2020-09-04 09:14 | PM.CNCAR ---
Assessment and Plan Assessment and plan (1) Acute systolic CHF (congestive heart failure): Code(s): I50.21 - Acute systolic (congestive) heart failure Status: Acute Assessment and Plan: Acute on chronic systolic congestive heart failure. Will continue Entresto and metoprolol. Will temporarily hold spironolactone and diuretic for the rest of today in preparation for his coronary angiogram tomorrow because of his kidney disease. Plan for cardiac catheterization tomorrow. May need some IV fluids or even inotropic therapy depending on the results of his cardiac catheterization. Likely ischemic. Continue aspirin and statin also (2) LBBB (left bundle branch block): Code(s): I44.7 - Left bundle-branch block, unspecified Status: Chronic (3) CKD (chronic kidney disease): Code(s): N18.9 - Chronic kidney disease, unspecified Status: Chronic (4) Cardiomyopathy: Code(s): I42.9 - Cardiomyopathy, unspecified Status: Acute Assessment and Plan: EF less than 20%. Plan as above. Angiogram tomorrow. History of Present Illness History of Present Illness Consult date/time: 09/04/20 09:14 Requesting physician: Jolene Flores MD Consult reason: congestive heart failure Reason For Visit: Decompensated cardiomyopathy Narrative: Date of service 09/04/2020: History: Patient is a 70-year-old male with history of hypertension hyperlipidemia tobacco use. He presented [facility] back in July of 2020 with complaints of respiratory distress. He was found have frequent PVCs left bundle branch block. Troponin did rise to 7.4. BNP was significantly elevated. Echocardiogram showed wall motion abnormalities and ejection fraction 20-25%. He was started on medical therapy including metoprolol Entresto and spironolactone. He was sent home on a LifeVest. His stress test was markedly abnormal for infarction and ischemia. This was personally reviewed and analyzed. He was supposed to undergo a cardiac catheterization this past Saturday but due to insurance reasons, his catheterization was denied initially. He was subsequently rescheduled for coronary angiogram tomorrow. Two days ago at night he woke up short of breath at approximately 2:00 a.m.. He also noticed some worsening swelling in the right foot. Yesterday he was supposed to get repeat COVID tested. Patient did feel like he was a bit more short of breath and he typically have been as of late. At the facility to get tested, he was told that there is no order for his COVID testing became more anxious and frustrated. This led to more shortness of breath. He simply stated that that point he felt like he could not go home because he was dyspneic and due to the symptoms from the night before causing him to wake up gasping for air as well as worsening edema came to the hospital for further workup evaluation. In the emergency room he was given IV diuretics and then later a breathing treatment up on the floor. Today he feels much better as less short of breath. He denies any chest pain, syncope, paroxysmal nocturnal dyspnea except for 2 nights ago. No palpitations. He does feel lightheaded if he stands up too fast. His BNP was found to be 25,000. Review of Systems Review of Systems: All systems reviewed & are unremarkable except as noted in HPI and below Constitutional: Constitutional: Reports fatigue Eyes: Eyes: Denies blurry vision ENT: Reports Normal hearing present Cardiovascular: Cardiovascular: Denies chest pain, Reports pedal edema and Reports lightheadedness Respiratory: Respiratory: Reports dyspnea and Reports dyspnea on exertion Gastrointestinal: Gastrointestinal: Denies abdominal pain Genitourinary: Genitourinary: Denies dysuria Musculoskeletal: Musculoskeletal: Denies back pain and Denies neck pain Integumentary/Breasts: Skin/Breast: Denies dry skin Neurologic: Denies headache(s) and Denies numbness Psychiatric: Psych
--- NOTE | 2020-09-04 11:53 | PM.IMPN ---
Progress Note: A&P Assessment and Plan (1) Acute systolic CHF (congestive heart failure): Code(s): I50.21 - Acute systolic (congestive) heart failure Status: Acute (2) CKD (chronic kidney disease): Code(s): N18.9 - Chronic kidney disease, unspecified Status: Chronic (3) Hyperlipidemia, unspecified: Code(s): E78.5 - Hyperlipidemia, unspecified Status: Chronic (4) Benign essential hypertension: Code(s): I10 - Essential (primary) hypertension Status: Chronic (5) Gout without tophus: Code(s): M10.9 - Gout, unspecified Status: Chronic (6) Asthma exacerbation in COPD: Code(s): J44.1 - Chronic obstructive pulmonary disease with (acute) exacerbation; J45.901 - Unspecified asthma with (acute) exacerbation Status: Acute Additional Plan 09/03/20 Patient's estimated ejection fraction is 20-25%. The patient has his life vest off at this time. The patient is positioned across the ramirez from the nurses station were there is easy access to the crash cart. The patient stated that he is supposed to have a cardiac catheterization on Saturday however he still short of breath at this time. Cardiology has been consulted. The patient was placed on Entresto last month and he assures me That he is taking this. Continue with metoprolol. Continue spironolactone. We are doing IV Lasix at this time. I explained the need for the life vest and that is a defibrillator in the event that his heart would start fibrillating. The patient thought that it would shock him if his heart completely stopped. The patient is on spironolactone Entresto and metoprolol. I explained that it would shock him to 2 defibrillator him if it was indicated. The patient needs further education on congestive heart failure. I personally witness the patient have orthopnea while he was in the room. The patient stated he could not tolerate to lie flat he felt like he was more short of breath lying flat. And then when he stands up to use the urinal he also feels short of breath. So his dyspnea on exertion as well. The patient was on steroids 1 month [address] I did place him back on Solu-Medrol as his lung sounds are decreased it most likely he is having exacerbation at this time. Continue with nebulizer treatments. The patient may benefit from inhalers at home or at least a rescue inhaler. Patient may also follow-up with forestry supervisor outpatient perez as needed. Continue with colchicine and allopurinol for now. 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 Understands that he will have cardiac catheterization tomorrow. Looking for to having some answers as to why he has become so short of breath with minimal exertion. Review of Systems Review of Systems: All systems reviewed & are unremarkable except as noted in HPI and below Exam Narrative: Exam Narrative: GEN: NAD, cooperative HEENT: NCAT, MMM, EOMI Neck: no JVD Heart: S1S2 RRR Lungs: Symmetric chest rise no use of accessory muscles distress Abd: soft, NT, ND, bowel sounds normoactive Ext: moves all, no cyanosis, no clubbing, mild edema of R foot/ ankle Neuro: CN intact, no focal motor deficits, AAOx3 Psych: mood reduced, affect congruent flattened, poor eye contact Objective Data Vital Signs Vital Signs: Vital Signs - 24 hr 09/03/20 12:15 09/03/20 12:44 09/03/20 13:14 Temperature 98.1 F Pulse Rate 83 90 93 Respiratory Rate 20 20 Blood Pressure 131/91 H 144/77 H Pulse Oximetry 97 97 09/03/20 16:00 09/03/20 16:09 09/03/20 16:11 Temperature 99.2 F Pulse Rate 100 9
[2020-09-05] VITALS (27 sets, daily range): BP systolic 93–115; BP diastolic 46–79; PULSE 58–88; RESP 15–22; TEMP 36.2–36.6; O2SAT 92–100
[2020-09-05 05:17] LABS: Anion Gap 7 mmol/L (8-16); Blood Urea Nitrogen 46 mg/dL (9-20); Calcium 8.4 mg/dL (8.4-10.2); Carbon Dioxide 25 mmol/L (22-30); Chloride 104 mmol/L (98-107); Estimated CRCL calculation 29 ml/min; Estimated Glomerular Filt Rate 30; Glucose 186 mg/dL (75-110); Potassium 4.7 mmol/L (3.4-5.0); Sodium 136 mmol/L (137-145)
[2020-09-05] MEDS: methylPREDNISolone SOD SUCC 125 MG VIAL 60 MG IV PUSH ×2 (06:00→15:57)
[2020-09-05] MEDS: IPRATROPIUM BR 0.02% INH SOLN 0.5 MG/2.5 ML VIAL INHALATION ×2 (08:32→14:22)
[2020-09-05] MEDS: METOPROLOL SUCCINATE EXT REL 50 MG TABCR PO (08:43)
[2020-09-05] MEDS: ASPIRIN 81 MG ENTERIC TABLET PO (08:45)
[2020-09-05] MEDS: ATORVASTATIN 20 MG TABLET PO (08:45)
[2020-09-05] MEDS: OMEGA 3 POLYUNSAT FATTY ACIDS 1 GM CAP PO (08:45)
[2020-09-05] MEDS: allopurinoL 100 MG TABLET PO (08:53)
[2020-09-05] MEDS: SACUBITRIL/VALSARTAN 24-26 MG TABLET 1 TAB PO (08:53)
[2020-09-05] MEDS: VITAMIN B COMPLEX/VIT C CAPSULE 1 EACH PO (09:13)
[2020-09-05 09:20] LABS: Magnesium 1.8 mg/dL (1.6-2.3)
--- NOTE | 2020-09-05 10:31 | WPDMODSED ---
Moderate Sedation Note-Pt Data Patient Data Diagnosis: recently diagnosed cardiomyopathy in patient presenting with congestive heart failure and noninvasive data suggesting underlying ischemic disease Present Complaint: shortness of breath Procedure to be performed/Plan: coronary angiogram do not expect to inject left ventricle to minimize contrast exposure Allergies Allergy/AdvReac Type Severity Reaction Status Date / Time No Known Allergies Allergy Verified 09/03/20 09:44 Home Medications Medication Instructions Recorded Confirmed Type aspirin 81 mg tablet,delayed 81 mg PO DAILY 05/20/19 09/03/20 History release omega-3 fatty acids 1,000 mg 1,000 mg PO DAILY 05/20/19 09/03/20 History capsule B-complex with vitamin C 1 tablet PO DAILY 05/30/20 09/03/20 History allopurinol 100 mg tablet 100 mg PO DAILY #90 tablet 05/31/20 09/03/20 Rx atorvastatin 20 mg tablet 20 mg PO DAILY #90 tablet 05/31/20 09/03/20 Rx colchicine 0.6 mg tablet 0.6 mg PO BID PRN #30 tablet 07/26/20 09/03/20 Rx metoprolol succinate 50 mg PO QAM #90 tablet 08/02/20 09/03/20 Rx sacubitril-valsartan [Entresto] 1 tab PO Q12HR #90 tablet 08/02/20 09/03/20 Rx spironolactone 25 mg PO QAM #90 tablet 08/02/20 09/03/20 Rx Current Medications: Active Medications Allopurinol (Allopurinol 100 Mg Tablet) 100 mg PO DAILY [facility] Last Admin: 09/05/20 08:53 Dose: 100 mg Documented by: Aspirin (Aspirin 81 Mg Enteric Tablet) 81 mg PO DAILY [facility] Last Admin: 09/05/20 08:45 Dose: 81 mg Documented by: Atorvastatin Calcium (Atorvastatin 20 Mg Tablet) 20 mg PO DAILY [facility] Last Admin: 09/05/20 08:45 Dose: 20 mg Documented by: Colchicine (Colchicine 0.6 Mg Tablet) 0.6 mg PO BID PRN PRN Reason: Gout Fish Oil ([place] 3 Polyunsat Fatty Acids 1 Gm Cap) 1 gm PO DAILY [facility] Last Admin: 09/05/20 08:45 Dose: 1 gm Documented by: Furosemide (Furosemide Inj 40 Mg/4 Ml Vial) 40 mg IV PUSH Q12HR [facility] Last Admin: 09/04/20 08:35 Dose: 40 mg Documented by: Ipratropium Almond (Ipratropium Br 0.02% Inh Soln 0.5 Mg/2.5 Ml Vial) 0.5 mg INHALATION Q6HRT PRN PRN Reason: Shortness Of Breath Last Admin: 09/05/20 08:32 Dose: 0.5 mg Documented by: Levalbuterol HCl (Levalbuterol Neb 1.25 Mg/0.5 Ml) 1.25 mg INHALATION Q6HRT [facility] Last Admin: 09/05/20 08:32 Dose: 1.25 mg Documented by: Methylprednisolone Sodium Succinate (Methylprednisolone Sod Succ 125 Mg Vial) 60 mg IV PUSH Q8HR [facility] Last Admin: 09/05/20 06:00 Dose: 60 mg Documented by: Metoprolol Succinate (Metoprolol Succinate Ext Rel 50 Mg Tabcr) 50 mg PO QAM [facility] Last Admin: 09/05/20 08:43 Dose: 50 mg Documented by: Ondansetron HCl (Ondansetron Inj 4 Mg/2 Ml Vial) 4 mg IV PUSH Q4H PRN PRN Reason: Nausea Sacubitril/Valsartan (Sacubitril/Valsartan 24-26 Mg Tablet) 1 tab PO Q12HR [facility] Last Admin: 09/05/20 08:53 Dose: 1 tab Documented by: Spironolactone (Spironolactone 25 Mg Tablet) 25 mg PO QAM [facility] Last Admin: 09/04/20 08:36 Dose: 25 mg Documented by: Vitamin B Complex/Vitamin C (Vitamin B Complex/Vit C Capsule) 1 each PO DAILY [facility] Last Admin: 09/05/20 09:13 Dose: 1 each Documented by: Sedation/Anesthesia: No previous sedation/anesthesia problems (including family history). ON LICENSE OF [facility] Past Medical History Medical History Benign essential hypertension Blindness of right eye Cardiomyopathy CHF (congestive heart failure) 07/29/2020 calculated ejection fraction 20% visualized emanation 20 25% diastolic dysfunction is present Gout without tophus Hyperlipidemia, unspecified LBBB (left bundle branch block) Screening for colon cancer Screening for prostate cancer Surgical History Surgical History H/O bilateral cataract extraction With lens implant H/O eye surgery History of retinal detachment with surgical repair Family History Family History (Reviewed 09/04/20 @ 09:19 by William
--- NOTE | 2020-09-05 10:55 | P.PCNCC_ITS ---
Cardiac Cath Procedure Note Date of procedure:: 09/05/20 Performing physician:: Moreno Ricketts MD Indication:: recent diagnosis of systolic left ventricular dysfunction with presentation with decompensated congestive heart failure left bundle branch block abnormal nuclear stress indicating likely multivessel coronary disease Brief clinical history:: this is a 70-year-old man with a history of congestive heart failure which became clinically evident last month he was hospitalized treated medically and did well. He was found to have a left bundle branch block and elevated troponin at that time as well. He had evidence of some renal insufficiency resulting in concern regarding performing angiography at that time. Nuclear stress testing done as an outpatient however suggests evidence of multivessel coronary disease. He was admitted again over the weekend with some shortness of breath and being brought to the labor and delivery nurse today for angiography in that setting. Procedure Procedure performed:: Coronary angiogram no left ventriculogram to minimize contrast exposure Sedation/Medication given:: fentanyl 25 mg Versed 2 mg case start time 10:38 a.m. case end time 10:52 a.m. sedation provided by Lauren Chamorro RN, trained observer Access site:: right femoral artery Estimated blood loss:: 10-15 cc Procedure note:: patient was brought to the cardiac catheterization lab in the postabsorptive state the right femoral triangle was prepped and draped in the usual fashion. Anesthesia was provided with 1% lidocaine infiltrated locally. Using the modified Seldinger technique a 5 Marshallese sheath was placed in the right femoral artery. I then used a 5 Marshallese FL4 catheter to engage inject the left coronary artery. After this I used a 5 Marshallese JR4 catheter to engage inject the right coronary artery. As the patient has some renal insufficiency left ventriculography was not performed to reduce contrast exposure. Left ventricular systolic function by recent echo was found to be markedly reduced. Findings:: Hemodynamics: central aortic pressure was 81/54. The left main coronary artery is nicely patent. The left anterior descending is a large caliber vessel extending down to around the apex. In the midportion there is a discrete 90-95% stenosis in the LAD. The circumflex is a moderate caliber artery giving rise to the marginal branches. The circumflex following the 1st OM branch has a relatively long area of high-grade 95-99% stenosis prior to a medium-sized posterior marginal branch. The right coronary artery is medium in caliber and dominant to the posterior circulation the right coronary artery is 100% occluded immediately after its olman gin. There is both right to right and [id number] collateral filling of the RPDA and RPL branches which appear to be moderate to large-sized vessels but are obviously under filled. Conclusion:: 1. Severe three-vessel coronary artery disease with high-grade lesions in the mid LAD, mid circumflex and proximal right coronary artery. The RCA is occluded and collateralized vessel 2. Echocardiographic evidence of severe cardiomyopathy obviously ischemic in nature based on these findings. 3. No left ventriculogram done to minimize contrast exposure 4. given this anatomy patient will will be referred for surgical myocardial revascularization Moreno Ricketts MD [facility]
--- NOTE | 2020-09-05 15:07 | PM.TDS ---
Transfer Discharge Sum: Prov Provider Date of admission: 09/03/20 11:26 Primary care physician: Edin Mathew DO Admitting clinician: Amee Castillo MD Consults: 09/03/20 11:27 Consult to Physician Routine Comment: Consulting Provider: William Saravia Reason for consultation: cardiomyopathy Has provider been notified: Yes DS: Admitting Diagnosis Admitting Diagnosis Admitting Diagnosis: Chief Complaint: Shortness of breath DS: Discharge Diagnosis Discharge Diagnosis (1) Acute systolic CHF (congestive heart failure): Code(s): I50.21 - Acute systolic (congestive) heart failure Status: Acute Assessment and Plan: Patient's estimated ejection fraction is 20-25%. The patient has his life vest off at this time. The patient is positioned across the ramirez from the nurses station were there is easy access to the crash cart. The patient stated that he is supposed to have a cardiac catheterization on Saturday however he still short of breath at this time. Cardiology has been consulted. The patient was placed on Entresto last month and he assures me That he is taking this. Continue with metoprolol. Continue spironolactone. We are doing IV Lasix at this time. I explained the need for the life vest and that is a defibrillator in the event that his heart would start fibrillating. The patient thought that it would shock him if his heart completely stopped. I explained that it would shock him to 2 defibrillator him if it was indicated. The patient needs further education on congestive heart failure. I personally witness the patient have orthopnea while he was in the room. The patient stated he could not tolerate to lie flat he felt like he was more short of breath lying flat. And then when he stands up to use the urinal he also feels short of breath. So his dyspnea on exertion as well. (2) CKD (chronic kidney disease): Code(s): N18.9 - Chronic kidney disease, unspecified Status: Chronic Assessment and Plan: The patient is at his baseline. Will continue to monitor daily since he is on Entresto, colchicine, allopurinol, and spironolactone. (3) Hyperlipidemia, unspecified: Code(s): E78.5 - Hyperlipidemia, unspecified Status: Chronic Assessment and Plan: Continue with [place] 3 and atorvastatin. (4) Benign essential hypertension: Code(s): I10 - Essential (primary) hypertension Status: Chronic Assessment and Plan: The patient is on spironolactone Entresto and metoprolol. (5) Gout without tophus: Code(s): M10.9 - Gout, unspecified Status: Chronic Assessment and Plan: Continue with colchicine and allopurinol for now. (6) Asthma exacerbation in COPD: Code(s): J44.1 - Chronic obstructive pulmonary disease with (acute) exacerbation; J45.901 - Unspecified asthma with (acute) exacerbation Status: Acute Assessment and Plan: The patient was on steroids 1 month [address] I did place him back on Solu-Medrol as his lung sounds are decreased it most likely he is having exacerbation at this time. Continue with nebulizer treatments. The patient may benefit from inhalers at home or at least a rescue inhaler. Patient may also follow-up with strategy execution consultant outpatient perez as needed. Transfer Discharge Sum: Med Medications Active and Home Medications: Home Medications aspirin 81 mg tablet,delayed release 81 mg PO DAILY 05/20/19 [History Confirmed 09/03/20] omega-3 fatty acids 1,000 mg capsule 1,000 mg PO DAILY 05/20/19 [History Confirmed 09/03/20] B-complex with vitamin C 1 tablet PO DAILY 05/30/20 [History Confirmed 09/03/20] allopurinol 100 mg tablet 100 mg PO DAILY #90 tablet 05/31/20 [Rx Confirmed 09/03/20] atorvastatin 20 mg tablet 20 mg PO DAILY #90 tablet 05/31/20 [Rx Confirmed 09/03/20] colchicine 0.6 mg tablet 0.6 mg PO BID PRN #30 tablet 07/26/20 [Rx Confirmed 09/03/20] metoprolol succinate 50 mg PO QAM #90 tablet 07/12
--- NOTE | 2020-09-05 17:59 | PC.NURSE ---
Report was given to KALYANI Vidal at [facility] at [id number]. All questions answered per KALYANI Vidal.
== END 2020-09-05 19:00 | disposition short-term general hospital (02) ==
LOC: ANHED 10:05 → ANHIMU 12:27
PROVIDERS: Internal Medicine Cardiovascular Disease; Nurse Practitioner; Specialist; Admitting Provider Family Medicine; Emergency Provider General Practice; PCP Internal Medicine; Visit Provider Family Medicine
PROC: (CPT 93454; principal; 2020-09-05 10:30)
DX: R06.02 Shortness of breath (principal); J44.9 Chronic obstructive pulmonary disease, unspecified; I13.0 Hypertensive heart and chronic kidney disease with heart failure and stage 1 through stage 4 chronic kidney disease, or unspecified chronic kidney disease; I42.9 Cardiomyopathy, unspecified; I44.7 Left bundle-branch block, unspecified; M79.89 Other specified soft tissue disorders; M10.9 Gout, unspecified; I50.21 Acute systolic (congestive) heart failure; J44.1 Chronic obstructive pulmonary disease with (acute) exacerbation; J45.901 Unspecified asthma with (acute) exacerbation; N18.9 Chronic kidney disease, unspecified; Z87.891 Personal history of nicotine dependence
CPT/HCPCS: 36415; 36600; 71045; 80048; 82375; 82805; 83050; 83735; 83880; 84443; 84484; 85025; 85610; 85730; 93005; 93454; 93971; 94640; 96374; 96375; 96376; 99285; A9270; C1887; C1894; C9803; G0378; J1644; J1940; J2250; J2930; J3010; J7040; U0003; U0005

== ENCOUNTER 2020-10-13 10:26 | Outpatient (CLI) | payer MEDICARE, SELFPAY ==
[2020-10-13 10:58] LABS: Basophils Absolute Auto 0.1 K/mm3 (0.0-0.1); Basophils Percent Auto 0.4 % (0.2-1.2); Eosinophils Absolute Auto 0.1 K/mm3 (0-0.3); Eosinophils Percent Auto 0.7 % (0-4.4); Hematocrit 37.5 % (42.0-52.0); Hemoglobin 12.1 g/dL (14.0-18.0); Immature Granulocyte Absolute 0.08 K/mm3 (0.00-0.031); Immature Granulocyte Percent A 0.7 % (0-0.5); Lymphocytes Absolute Auto 2.07 K/mm3 (0.9-3.2); Lymphocytes Percent Auto 17.8 % (18.3-44.2); Mean Corpuscular HGB Conc 32.3 g/dl (32-36); Mean Corpuscular Hemoglobin 31.3 pg (26-34); Mean Corpuscular Volume 96.9 fl (80-100); Mean Platelet Volume 9.3 fl (7.4-10.4); Monocytes Absolute Auto 0.6 K/mm3 (0.1-0.6); Monocytes Percent Auto 5.5 % (2.6-8.5); Neutrophils Absolute Auto 8.7 K/mm3 (1.3-6.7); Neutrophils Percent Auto 74.9 % (45.5-73.1); Platelet Count Result 261 k/mm3 (150-375); Red Blood Count 3.87 M/mm3 (4.6-6.20); Red Cell Distribution Width 15.4 % (11.5-14.5); White Blood Count 11.6 K/mm3 (4.5-10.0)
[2020-10-13 11:08] LABS: Alanine Aminotransferase 18 U/L (4-50); Albumin Level 3.8 g/dL (3.5-5.1); Alkaline Phosphatase 68 U/L (38-126); Anion Gap 11 mmol/L (8-16); Aspartate Amino Transferase 30 U/L (17-59); Bilirubin,Total 0.4 mg/dL (0.2-1.3); Blood Urea Nitrogen 54 mg/dL (9-20); Calcium 9.7 mg/dL (8.4-10.2); Carbon Dioxide 25 mmol/L (22-30); Chloride 105 mmol/L (98-107); Estimated Glomerular Filt Rate 28; Glucose 161 mg/dL (75-110); Phosphorus 4.5 mg/dL (2.5-4.5); Potassium 4.4 mmol/L (3.4-5.0); Sodium 141 mmol/L (137-145); Uric Acid 7.4 mg/dL (3.5-8.5)
[2020-10-13 11:10] LABS: Creatinine Urine 82.2 mg/dL; Total Protein Urine Random 57 mg/dL; Ur Ttl Prot Creatinine Ratio 0.69 mg/mg (0-0.20)
[2020-10-13 11:21] LABS: Parathyroid Intact 86.5 pg/mL (7.5-53.5)
[2020-10-13 11:39] LABS: Add Urine Microscopic? YES; Appearance Urine Clear (Clear); Bilirubin Urine Negative (Negative); Blood Urine Negative (Negative); Color Urine Yellow (Yellow); Glucose Urine UA Negative (Negative); Ketones Urine Negative (Negative); Leukocyte Esterase Ur Negative LEU/UL (Negative); Nitrate Urine Negative (Negative); Protein Urine 2+ mg/dL (Negative); Specific Grav Ur 1.011 (1.001-1.035); Urobilinogen Urine Negative mg/dL (<2.0)
[2020-10-13 11:43] LABS: Vitamin D 25 Hydroxy 49.6 ng/mL
[2020-10-13 12:49] LABS: Squamous Epithelial Cell Urine Rare /hpf (Few)
== END 2020-10-13 10:27 | disposition home or self-care (01) ==
LOC: ANHLAB 10:31
PROVIDERS: PCP Internal Medicine; Visit Provider Internal Medicine Nephrology
DX: N18.4 Chronic kidney disease, stage 4 (severe) (principal); M10.9 Gout, unspecified; D63.1 Anemia in chronic kidney disease; I50.9 Heart failure, unspecified
CPT/HCPCS: 36415; 80053; 81001; 82306; 82570; 83970; 84100; 84156; 84550; 85025

== ENCOUNTER 2020-12-01 12:23 | Outpatient (CLI) | payer MEDICARE, SELFPAY ==
[2020-12-01 12:55] LABS: Alanine Aminotransferase 16 U/L (4-50); Albumin Level 4.4 g/dL (3.5-5.1); Alkaline Phosphatase 70 U/L (38-126); Anion Gap 13 mmol/L (8-16); Aspartate Amino Transferase 25 U/L (17-59); Bilirubin,Total 0.4 mg/dL (0.2-1.3); Blood Urea Nitrogen 57 mg/dL (9-20); Calcium 9.9 mg/dL (8.4-10.2); Carbon Dioxide 23 mmol/L (22-30); Chloride 106 mmol/L (98-107); Cholesterol 129 mg/dL (0-200); Estimated Glomerular Filt Rate 23; Glucose 105 mg/dL (65-110); HDL Direct 35 mg/dL; Potassium 4.8 mmol/L (3.4-5.0); Sodium 142 mmol/L (137-145); Triglycerides 118 mg/dL (<150); Uric Acid 6.3 mg/dL (3.5-8.5)
[2020-12-01 13:06] LABS: LDL Cholesterol Direct 51 mg/dL
[2020-12-01 13:25] LABS: Prostate Specific Antigen 0.6 ng/mL (< OR = 4.0)
[2020-12-01 13:57] LABS: Vitamin D 25 Hydroxy 54.1 ng/mL
== END 2020-12-01 12:24 | disposition home or self-care (01) ==
PROVIDERS: PCP Internal Medicine; Visit Provider Nurse Practitioner
DX: Z12.5 Encounter for screening for malignant neoplasm of prostate (principal); E78.5 Hyperlipidemia, unspecified; E55.9 Vitamin D deficiency, unspecified; N18.30 Chronic kidney disease, stage 3 unspecified; M10.9 Gout, unspecified
CPT/HCPCS: 36415; 80053; 80061; 82306; 84153; 84550; G0103

== ENCOUNTER 2021-01-11 12:26 | Outpatient (CLI) | payer MEDICARE, SELFPAY ==
[2021-01-11 13:10] LABS: Anion Gap 14 mmol/L (8-16); Blood Urea Nitrogen 49 mg/dL (9-20); Calcium 9.5 mg/dL (8.4-10.2); Carbon Dioxide 26 mmol/L (22-30); Chloride 100 mmol/L (98-107); Estimated Glomerular Filt Rate 25; Glucose 93 mg/dL (65-110); Potassium 4.8 mmol/L (3.4-5.0); Sodium 140 mmol/L (137-145)
== END 2021-01-11 12:27 | disposition home or self-care (01) ==
PROVIDERS: PCP Internal Medicine; Visit Provider Internal Medicine
DX: I50.22 Chronic systolic (congestive) heart failure (principal)
CPT/HCPCS: 36415; 80048

== ENCOUNTER 2021-02-02 11:00 | Outpatient (RCR) | payer MEDICARE, SELFPAY ==
[2020-11-08 15:42] VITALS: BP 100/62; PULSE 71; RESP 16; O2SAT 97
== END 2021-02-06 11:56 | disposition home or self-care (01) ==
LOC: ANHCPREHAB 11:00
PROVIDERS: PCP Internal Medicine; Visit Provider Internal Medicine
DX: Z95.1 Presence of aortocoronary bypass graft (principal)
CPT/HCPCS: 93798

== ENCOUNTER 2021-02-23 12:03 | Outpatient (CLI) | payer MEDICARE, SELFPAY ==
[2021-02-23 12:38] LABS: Hematocrit 43.8 % (42.0-52.0); Hemoglobin 13.9 g/dL (14.0-18.0); Mean Corpuscular HGB Conc 31.7 g/dl (32-36); Mean Corpuscular Hemoglobin 31.9 pg (26-34); Mean Corpuscular Volume 100.5 fl (80-100); Mean Platelet Volume 9.9 fl (7.4-10.4); Platelet Count Result 202 k/mm3 (150-375); Red Blood Count 4.36 M/mm3 (4.6-6.20); Red Cell Distribution Width 14.9 % (11.5-14.5); White Blood Count 7.2 K/mm3 (4.5-10.0)
[2021-02-23 12:54] LABS: Alanine Aminotransferase 19 U/L (4-50); Albumin Level 4.4 g/dL (3.5-5.1); Alkaline Phosphatase 50 U/L (38-126); Anion Gap 8 mmol/L (8-16); Aspartate Amino Transferase 22 U/L (17-59); Bilirubin,Total 0.5 mg/dL (0.2-1.3); Blood Urea Nitrogen 55 mg/dL (9-20); Calcium 9.3 mg/dL (8.4-10.2); Carbon Dioxide 28 mmol/L (22-30); Chloride 105 mmol/L (98-107); Estimated Glomerular Filt Rate 28; Glucose 108 mg/dL (65-110); Phosphorus 4.5 mg/dL (2.5-4.5); Potassium 4.6 mmol/L (3.4-5.0); Sodium 141 mmol/L (137-145)
== END 2021-02-23 12:04 | disposition home or self-care (01) ==
PROVIDERS: PCP Internal Medicine; Visit Provider Internal Medicine Nephrology
DX: N18.4 Chronic kidney disease, stage 4 (severe) (principal)
CPT/HCPCS: 36415; 80053; 84100; 84550; 85027

== ENCOUNTER → 2021-04-10 10:50 | Outpatient (CLI) | payer MEDICARE, SELFPAY ==
[2021-04-10 20:05] LABS: SARS-CoV-2 RNA PCR Negative
== END ==
PROVIDERS: PCP Internal Medicine
DX: I25.5 Ischemic cardiomyopathy (principal); I50.22 Chronic systolic (congestive) heart failure; I44.7 Left bundle-branch block, unspecified; Z20.822 Contact with and (suspected) exposure to COVID-19
CPT/HCPCS: C9803; U0003; U0005

== ENCOUNTER 2021-10-31 10:22 | Outpatient (CLI) | payer MEDICARE, SELFPAY ==
[2021-10-31 10:46] LABS: Alanine Aminotransferase 15 U/L (6-50); Albumin Level 4.2 g/dL (3.5-5.1); Alkaline Phosphatase 74 U/L (38-126); Anion Gap 2 mmol/L (8-16); Aspartate Amino Transferase 25 U/L (17-59); Bilirubin,Total 0.4 mg/dL (0.2-1.3); Blood Urea Nitrogen 41 mg/dL (9-20); Calcium 8.9 mg/dL (8.4-10.2); Carbon Dioxide 28 mmol/L (22-30); Chloride 110 mmol/L (98-107); Cholesterol 174 mg/dL (0-200); Estimated Glomerular Filt Rate 35; Glucose 99 mg/dL (65-110); HDL Direct 61 mg/dL; Potassium 4.8 mmol/L (3.4-5.0); Sodium 140 mmol/L (137-145); Triglycerides 61 mg/dL (<150); Uric Acid 4.3 mg/dL (3.5-8.5)
[2021-10-31 10:57] LABS: LDL Cholesterol Direct 75 mg/dL
[2021-10-31 11:14] LABS: Vitamin D 25 Hydroxy 67.5 ng/mL
[2021-11-03 11:31] LABS: PSA, Free 0.56 ng/mL; PSA, Total 0.8 ng/mL (<=4.0)
== END 2021-10-31 10:23 | disposition home or self-care (01) ==
LOC: ANHLAB 10:23
PROVIDERS: PCP Internal Medicine; Visit Provider Nurse Practitioner
DX: Z12.5 Encounter for screening for malignant neoplasm of prostate (principal); E78.5 Hyperlipidemia, unspecified; E55.9 Vitamin D deficiency, unspecified; N18.9 Chronic kidney disease, unspecified; M10.9 Gout, unspecified
CPT/HCPCS: 36415; 80053; 80061; 82306; 84153; 84154; 84550; G0103

== ENCOUNTER → 2022-01-26 05:22 | Outpatient (CLI) | payer MEDICARE, SELFPAY ==
[2022-01-26 11:49] LABS: SARS-CoV-2 RNA PCR Positive
== END ==
PROVIDERS: PCP Internal Medicine; Visit Provider Internal Medicine
DX: U07.1 COVID-19 (principal)
CPT/HCPCS: C9803; U0003; U0005

== ENCOUNTER 2022-11-27 10:46 | Outpatient (CLI) | payer MEDICARE, SELFPAY ==
[2022-11-27 11:08] LABS: Basophils Absolute Auto 0.1 K/mm3 (0.0-0.1); Basophils Percent Auto 0.8 % (0.2-1.2); Eosinophils Absolute Auto 0.2 K/mm3 (0-0.3); Eosinophils Percent Auto 2.8 % (0-4.4); Hematocrit 45.8 % (42.0-52.0); Hemoglobin 14.7 g/dL (14.0-18.0); Immature Granulocyte Absolute 0.03 K/mm3 (0.00-0.031); Immature Granulocyte Percent A 0.5 % (0-0.5); Lymphocytes Absolute Auto 1.89 K/mm3 (0.9-3.2); Lymphocytes Percent Auto 29.8 % (18.3-44.2); Mean Corpuscular HGB Conc 32.1 g/dl (32-36); Mean Corpuscular Hemoglobin 32.3 pg (26-34); Mean Corpuscular Volume 100.7 fl (80-100); Monocytes Absolute Auto 0.6 K/mm3 (0.1-0.6); Monocytes Percent Auto 9.1 % (2.6-8.5); Neutrophils Absolute Auto 3.6 K/mm3 (1.3-6.7); Platelet Count Result 158 k/mm3 (150-375); Red Blood Count 4.55 M/mm3 (4.6-6.20); Red Cell Distribution Width 14.6 % (11.5-14.5); White Blood Count 6.4 K/mm3 (4.5-10.0)
[2022-11-27 13:14] LABS: Creatinine Urine 28.8 mg/dL
[2022-11-27 13:19] LABS: MALB Creatinine Ratio 333.3 mg/g (0-30)
== END 2022-11-27 10:47 | disposition home or self-care (01) ==
PROVIDERS: PCP Nurse Practitioner Family; Visit Provider Nurse Practitioner Family
DX: E55.9 Vitamin D deficiency, unspecified (principal); E78.5 Hyperlipidemia, unspecified; Z79.899 Other long term (current) drug therapy; I50.9 Heart failure, unspecified; I12.9 Hypertensive chronic kidney disease with stage 1 through stage 4 chronic kidney disease, or unspecified chronic kidney disease; N18.9 Chronic kidney disease, unspecified
CPT/HCPCS: 36415; 82043; 85025

== ENCOUNTER 2022-12-07 06:55 | Outpatient (CLI) | payer MEDICARE, SELFPAY ==
--- NOTE | ~2022-12-07 | CT_ITS ---
CT Scan of the Chest without Contrast: Clinical Indication: Lung cancer screening, personal history of nicotine dependence Technique: Contiguous sections were acquired throughout the chest without intravenous contrast. Dose reduction technique was used on this scan by utilizing automated exposure control and iterative recon struction technique. The dose-length product (DLP) was 194.27 mGy-cm. COMPARISON: 07/29/2020 and 06/02/2019 Findings: There is no evidence of any significant mediastinal, hilar or axillary lymphadenopathy. Coronary breann ry calcifications are present. Pacemaker device present. There is no evidence of pleural or pericardial effusion. Severe emphysema present. Calcified granulomas are present. Images through the upper abdomen reveal pancreatic calcifications, consistent with chronic pancreatit is. Chronic loss of height of T8 and T9. Impression: Lung RADS 2: Benign appearance. 12 month follow-up screening CT advised. Severe emphysema. Chronic pancreatitis. Reviewed, dictated and finalized at [facility]. Impression: Lung RADS 2: Benign appearance. 12 month follow-up screening CT advised. Severe emphysema. Chronic pancreatitis.
== END 2022-12-07 06:56 | disposition home or self-care (01) ==
PROVIDERS: PCP Nurse Practitioner Family; Visit Provider Nurse Practitioner Family
DX: Z12.2 Encounter for screening for malignant neoplasm of respiratory organs (principal); Z87.891 Personal history of nicotine dependence; J43.9 Emphysema, unspecified; K86.1 Other chronic pancreatitis
CPT/HCPCS: 71271

== ENCOUNTER 2022-12-24 09:45 | Outpatient (CLI) | payer MEDICARE, SELFPAY ==
--- NOTE | ~2022-12-24 | US_ITS ---
EXAMINATION: US abdomen complete DATE: 12/24/2022 10:59 INDICATION: Findings of chronic pancreatitis on CT TECHNIQUE: Multiple grayscale and Doppler ultrasound images of the abdomen were obtained. COMPARISON: CT, 12/07/2022, 07/29/2020 FINDINGS: There are multiple calcifications of the visualized pancreas. There is a 1.9 cm cystic lesi on in the body of the pancreas. The liver is normal with normal echogenicity and echotexture. No surf lorena nodularity. Normal hepatopetal flow in the main portal vein. The gallbladder is normal with no ab normal wall thickening, pericholecystic fluid or stones. The normal common bile duct measures 4 mm. T here was no sonographic Somers sign. The visualized portions of the aorta and inferior vena cava are normal. The spleen is normal in appearance and measures 10.3 cm. The right kidney measures 9.7 x 5.8 x 5.8 cm and contains a 7 mm cyst. The left kidney measures 12.2 x 5.0 x 7.2 cm and contains cysts measuring up to 5.1 cm. The kidneys demonstrate normal parenchymal echogenicity. There is no hydronephrosis. IMPRESSION: 1. Findings consistent with chronic pancreatitis including a chronic, stable cystic lesion in the bod y of the pancreas. Reviewed, dictated and finalized at location B. IMPRESSION: 1. Findings consistent with chronic pancreatitis including a chronic, stable cy stic lesion in the body of the pancreas.
== END 2022-12-24 09:46 | disposition home or self-care (01) ==
PROVIDERS: PCP Nurse Practitioner Family; Visit Provider Nurse Practitioner Family
DX: R91.8 Other nonspecific abnormal finding of lung field (principal); K86.9 Disease of pancreas, unspecified
CPT/HCPCS: 76700

== ENCOUNTER 2023-02-21 11:26 | Outpatient (CLI) | payer MEDICARE, SELFPAY ==
[2023-02-21 12:42] LABS: Hematocrit 47.1 % (42.0-52.0); Mean Corpuscular HGB Conc 31.8 g/dl (32-36); Mean Corpuscular Hemoglobin 32.8 pg (26-34); Mean Corpuscular Volume 103.1 fl (80-100); Mean Platelet Volume 10.3 fl (7.4-10.4); Platelet Count Result 177 k/mm3 (150-375); Red Blood Count 4.57 M/mm3 (4.6-6.20); Red Cell Distribution Width 14.2 % (11.5-14.5); White Blood Count 5.8 K/mm3 (4.5-10.0)
[2023-02-21 12:53] LABS: Alanine Aminotransferase 19 U/L (6-50); Albumin Level 4.3 g/dL (3.5-5.1); Alkaline Phosphatase 54 U/L (38-126); Anion Gap 8 mmol/L (8-16); Aspartate Amino Transferase 27 U/L (17-59); Bilirubin,Total 0.9 mg/dL (0.2-1.3); Blood Urea Nitrogen 38 mg/dL (9-20); Calcium 9.1 mg/dL (8.4-10.2); Carbon Dioxide 27 mmol/L (22-30); Chloride 105 mmol/L (98-107); Estimated Glomerular Filt Rate 31; Glucose 88 mg/dL (65-110); Lipase 84 U/L (23-300); Potassium 5.3 mmol/L (3.4-5.0); Sodium 140 mmol/L (137-145)
== END 2023-02-21 11:27 | disposition home or self-care (01) ==
PROVIDERS: PCP Nurse Practitioner Family; Visit Provider Internal Medicine Gastroenterology
DX: K86.1 Other chronic pancreatitis (principal)
CPT/HCPCS: 36415; 80053; 83690; 85027

== ENCOUNTER 2023-05-24 11:03 | Outpatient (CLI) | payer MEDICARE, SELFPAY ==
[2023-05-24 11:53] LABS: Basophils Percent Auto 0.5 % (0.2-1.2); Eosinophils Absolute Auto 0.1 K/mm3 (0-0.3); Eosinophils Percent Auto 2.4 % (0-4.4); Hematocrit 50.2 % (42.0-52.0); Hemoglobin 15.8 g/dL (14.0-18.0); Immature Granulocyte Absolute 0.03 K/mm3 (0.00-0.031); Immature Granulocyte Percent A 0.5 % (0-0.5); Lymphocytes Absolute Auto 1.54 K/mm3 (0.9-3.2); Lymphocytes Percent Auto 26.3 % (18.3-44.2); Mean Corpuscular HGB Conc 31.5 g/dl (32-36); Mean Corpuscular Hemoglobin 31.9 pg (26-34); Mean Corpuscular Volume 101.2 fl (80-100); Mean Platelet Volume 10.5 fl (7.4-10.4); Monocytes Absolute Auto 0.5 K/mm3 (0.1-0.6); Monocytes Percent Auto 8.7 % (2.6-8.5); Neutrophils Absolute Auto 3.6 K/mm3 (1.3-6.7); Neutrophils Percent Auto 61.6 % (45.5-73.1); Platelet Count Result 192 k/mm3 (150-375); Red Blood Count 4.96 M/mm3 (4.6-6.20); Red Cell Distribution Width 14.7 % (11.5-14.5); White Blood Count 5.9 K/mm3 (4.5-10.0)
[2023-05-24 12:04] LABS: Alanine Aminotransferase 16 U/L (6-50); Albumin Level 4.2 g/dL (3.5-5.1); Alkaline Phosphatase 67 U/L (38-126); Amylase 104 U/L (30-110); Anion Gap 10 mmol/L (8-16); Aspartate Amino Transferase 24 U/L (17-59); Bilirubin,Total 0.9 mg/dL (0.2-1.3); Blood Urea Nitrogen 53 mg/dL (9-20); Calcium 9.3 mg/dL (8.4-10.2); Carbon Dioxide 24 mmol/L (22-30); Chloride 108 mmol/L (98-107); Estimated Glomerular Filt Rate 28; Glucose 114 mg/dL (65-110); Lipase 70 U/L (23-300); Magnesium 2.3 mg/dL (1.6-2.3); Phosphorus 3.9 mg/dL (2.5-4.5); Potassium 4.3 mmol/L (3.4-5.0); Sodium 142 mmol/L (137-145)
[2023-05-24 12:08] LABS: Bacteria Urine None Seen /hpf; Non Pathogenic Casts 0-2; RBC Urine 0-2 /hpf (0-2); Squamous Epithelial Cell Urine None seen /hpf (Few); WBC Urine 0-5 /hpf
[2023-05-24 12:10] LABS: Add Urine Microscopic? YES; Appearance Urine Clear (Clear); Bilirubin Urine Negative (Negative); Blood Urine Negative (Negative); Color Urine Yellow (Yellow); Creatinine Urine 104.9 mg/dL; Glucose Urine UA 2+ mg/dL (Negative); Ketones Urine Negative (Negative); Leukocyte Esterase Ur Negative LEU/UL (Negative); Nitrate Urine Negative (Negative); Protein Urine 3+ mg/dL (Negative); Total Protein Urine Random 136 mg/dL; Urobilinogen Urine 0.2 mg/dL (<2.0); pH Urine 5.5 (5.0-9.0)
[2023-05-24 12:16] LABS: NT Pro B Type Natriuretic Pept 1920 pg/mL (19.9-100)
[2023-05-24 12:37] LABS: Vitamin D 25 Hydroxy 40.7 ng/mL
[2023-05-24 13:19] LABS: Folic Acid > 20.0 ng/mL (2.76->20)
== END 2023-05-24 11:04 | disposition home or self-care (01) ==
PROVIDERS: PCP Nurse Practitioner Family; Referring Provider Nurse Practitioner Family; Visit Provider Internal Medicine Nephrology
DX: M10.9 Gout, unspecified (principal); N25.81 Secondary hyperparathyroidism of renal origin; I13.0 Hypertensive heart and chronic kidney disease with heart failure and stage 1 through stage 4 chronic kidney disease, or unspecified chronic kidney disease; N18.30 Chronic kidney disease, stage 3 unspecified; D75.89 Other specified diseases of blood and blood-forming organs
CPT/HCPCS: 36415; 80053; 81001; 81050; 82150; 82306; 82570; 82607; 82746; 83690; 83735; 83880; 83970; 84100; 84156; 84443; 85025

== ENCOUNTER 2023-08-27 07:56 | Outpatient (CLI) | payer MEDICARE, SELFPAY ==
--- NOTE | ~2023-08-27 | US_ITS ---
US abdomen limited INDICATION: Chronic pancreatitis PROCEDURE: Realtime right upper abdominal ultrasound. COMPARISON: No prior studies for comparison. FINDINGS: There is a chronic cyst of the pancreas measuring 2.9 x 2.7 x 1.6 and, likely from chronic pancreatitis. Liver echotexture is normal without focal mass or intrahepatic biliary dilatation. Th ere is normal directional flow in the portal vein. The gallbladder is normal without stones, gallbladder wall thickening or pericholecystic fluid. Comm on bile duct measures 2.5 mm. No sonographic Somers's sign. IMPRESSION: 1: Pancreatic cyst measuring 2.9 cm, likely pseudocysts secondary to chronic pancreatitis. The differ ential diagnosis includes intraductal papillary mucinous neoplasm (IPMN), mucinous cystic neoplasm (M CN), and the less common serous cystadenoma and neuroendocrine tumor. Reviewed, dictated and finalized at location B. IMPRESSION: 1: Pancreatic cyst measuring 2.9 cm, likely pseudocysts secondary to chronic pa ncreatitis. The differential diagnosis includes intraductal papillary mucinous neoplasm (IPMN), mucinous cystic neoplasm (MCN), and the less common serous cys tadenoma and neuroendocrine tumor.
== END 2023-08-27 07:57 | disposition home or self-care (01) ==
PROVIDERS: PCP Nurse Practitioner Family; Visit Provider Internal Medicine Gastroenterology
DX: K86.1 Other chronic pancreatitis (principal); K86.2 Cyst of pancreas
CPT/HCPCS: 76705